=== PATIENT | male | born 1945 | race Hispanic/Latino ===

== ENCOUNTER 2016-11-14 16:25 | Observation (INO) | payer MEDICARE ==
[2016-11-14 16:25] VITALS: BMI 30.5
--- NOTE | 2016-11-14 16:46 | C.PDOC ---
History Of Present Illness 71 y/o male presents to the ED with complains of worsening chest pain over the past 2 days. Pt has known cardiac disease with multiple stents and chronic chest pain but over the past 2 days pain has worsened, is [id number] and worse with exertion, relieved with rest. Pt also reports SOB when chest pain occurs. Pt saw Dr Efrain pack who sent patient to ED for evaluation and admission for "unstable angina." Pt currently denies pain, nausea, palpitations , diaphoresis or any other complaints. Time Seen by Provider: 11/14/16 16:31 Chief Complaint (Nursing): Chest Pain History Per: Patient History/Exam Limitations: no limitations Onset/Duration Of Symptoms: Days Current Symptoms Are (Timing): Worse Severity: Moderate Quality: "Pain" Exacerbating Factors: Exertion Alleviating Factors: Rest Recent travel outside of the [place]: No Past Medical History Reviewed: Historical Data, Nursing Documentation, Vital Signs Vital Signs: Last Vital Signs Temp 97.6 F 11/14/16 16:25 Pulse 64 11/14/16 16:25 Resp 18 11/14/16 16:25 BP 137/70 11/14/16 16:25 Pulse Ox 96 11/14/16 18:56 - Medical History PMH: Gastrointestinal Ulcer, HTN, Hypercholesterolemia Surgical History: Coronary Stent, Endoscopy Family History: States: Unknown Family Hx - Social History Hx Tobacco Use: No Hx Alcohol Use: No Hx Substance Use: No - Immunization History Hx Tetanus Toxoid Vaccination: No Hx Influenza Vaccination: No Hx Pneumococcal Vaccination: No Review Of Systems Except As Marked, All Systems Reviewed And Found Negative. Constitutional: Negative for: Fever, Sweats Cardiovascular: Positive for: Chest Pain (currenlty resolved). Negative for: Palpitations Respiratory: Positive for: Shortness of Breath (currently resolved) Gastrointestinal: Negative for: Nausea, Vomiting Physical Exam - Physical Exam Appears: Non-toxic, No Acute Distress Skin: Warm, Dry, No Rash Head: Atraumatic, Normacephalic Neck: Normal ROM, Supple Chest: Symmetrical, No Tenderness Cardiovascular: Rhythm Regular, No Murmur Respiratory: Normal Breath Sounds, No Rales, No Rhonchi, No Wheezing Gastrointestinal/Abdominal: Soft Extremity: Normal ROM, No Pedal Edema Extremity: Bilateral: Atraumatic Neurological/Psych: Oriented x3, Normal Speech ED Course And Treatment - Laboratory Results Result Diagrams: 11/14/16 17:29 11/14/16 17:29 Lab Interpretation: No Acute Changes ECG: Interpreted By Me ECG Rhythm: Sinus Rhythm (with left axis deviation and Q waves III, AVF) ECG Interpretation: No Acute Changes O2 Sat by Pulse Oximetry: 96 (on room air) Pulse Ox Interpretation: Normal - Radiology CXR: Interpreted by Me CXR Interpretation: Yes: Cardiomegaly, Other (with mild vascular congestion) Progress Note: Plan: EKG, labs, CXR, IV fluids Reevaluation Time: 18:55 Reassessment Condition: Improved (Patient remains comfortable) - Physician Consult Information Time Consulting Physician Contacted: 18:55 Physician Contacted: Coral Jackson Disposition - Disposition Disposition: HOSPITALIZED Disposition Time: 19:21 Condition: STABLE - POA Present On Arrival: None - Clinical Impression Clinical Impression: Chest pain, Unstable angina pectoris - Scribe Statement The provider has reviewed the documentation as recorded by the Hugh Cuello Provider Attestation: All medical record entries made by the Hugh were at my direction and personally dictated by me. I have reviewed the chart and agree that the record accurately reflects my personal performance of the history, physical exam, medical decision making, and the department course for this patient. I have also personally directed, reviewed, and agree with the discharge instructions and disposition.
[2016-11-14 17:35] LABS: BASO % 0.6 % (0.0-2.0); EOS # 0.1 K/uL (0.0-0.7); EOS % 3.8 % (0.0-4.0); HEMATOCRIT 40.7 % (35.0-51.0); LYMPH # 1.2 K/uL (1.0-4.3); LYMPH % 33.6 % (20.0-40.0); MEAN CELL VOLUME 90.9 fL (80.0-94.0); MEAN CORPUSCULAR HEMOGLOBIN 30.7 pg (27.0-31.0); MEAN CORPUSCULAR HGB CONC 33.8 g/dL (33.0-37.0); MONO # 0.6 K/uL (0.0-0.8); NRBC % 0.1 % (0.0-2.0); RED CELL DISTRIBUTION WIDTH 14.4 % (11.5-14.5); WHITE BLOOD COUNT 3.4 K/uL (4.8-10.8)
[2016-11-14 17:44] LABS: CHLORIDE 102 mmol/L (98-107); POTASSIUM 4.1 mmol/L (3.6-5.2); SODIUM 140 mmol/L (132-148)
[2016-11-14 17:47] LABS: ALB/GLOB RATIO 1.3 (1.0-2.1); ALKALINE PHOSPHATASE 57 U/L (38-126); ALT/SGPT 198 U/L (21-72); AST/SGOT 113 U/L (17-59); BILIRUBIN,TOTAL 0.8 mg/dL (0.2-1.3); BLOOD UREA NITROGEN 20 mg/dL (9-20); CARBON DIOXIDE 25 mmol/L (22-30); GFR AFRICAN-AMERICAN > 60; GLUCOSE,RANDOM 109 mg/dL (75-110); TOTAL PROTEIN 7.5 g/dL (6.3-8.3)
[2016-11-14 17:48] LABS: CALCIUM 8.8 mg/dl (8.6-10.4)
[2016-11-15] MEDS: Metoprolol Succinate 25 mg XL Tab PO SCH (09:47)
--- NOTE | 2016-11-15 11:45 | CARD ---
APPROVED REPORT EKG Measurement Heart [id number] AR 146P33 [id number] <Conclusion> Normal sinus rhythm Left axis deviation Inferior infarct, age undetermined Abnormal ECG
--- NOTE | 2016-11-15 13:19 | RAD ---
PROCEDURE: CHEST RADIOGRAPH, 1 VIEW HISTORY: chest pain COMPARISON: 10/23/2015 FINDINGS: LUNGS: Clear. PLEURA: No pneumothorax or pleural fluid seen. CARDIOVASCULAR: Normal. OSSEOUS STRUCTURES: No significant abnormalities. VISUALIZED UPPER ABDOMEN: Normal. OTHER FINDINGS: None IMPRESSION: No active disease.
--- NOTE | 2016-11-15 18:13 | CP.PCM.PN ---
Subjective - Date & Time of Evaluation Date of Evaluation: 11/15/16 Time of Evaluation: 18:10 - Subjective Subjective: PT IS STILL HAVING THE PRESSURE LIKE SENSATION OVER THE CHEST NO SOB NONAUSEA NO VOMITING Temp Pulse Resp BP Pulse Ox 97.8 F 67 20 119/71 96 11/15/16 15:00 11/15/16 15:30 11/15/16 15:00 11/15/16 15:00 11/15/16 15:00 CHEST GOOD AIR ENTRY REGULAR HS ABD SOFT EATING OK Temp Pulse Resp BP Pulse Ox 97.8 F 67 20 119/71 96 11/15/16 15:00 11/15/16 15:30 11/15/16 15:00 11/15/16 15:00 11/15/16 15:00 11/14/16 17:29 11/14/16 17:29 D-DIMER NEGATIVE LESS LIKELY DVT A/P: PT WITH HTN, COPD, LUNG NODULE, CAD S/P STENT NOW LIKELY HAS UNSTABLE ANGINA ONGOING ANGINA MICHAEL NEGATIVE WILL GET CARDIO LIKELY CATH IN AM Objective - Vital Signs/Intake and Output Vital Signs (last 24 hours): Temp Pulse Resp BP Pulse Ox 97.8 F 67 20 119/71 96 11/15/16 15:00 11/15/16 15:30 11/15/16 15:00 11/15/16 15:00 11/15/16 15:00 Intake and Output: 11/15/16 11/15/16 06:59 18:59 Intake Total 240 340 Balance 240 340 - Medications Medications: Current Medications Allopurinol (Zyloprim) 100 mg PO DAILY [facility] Last Admin: 11/15/16 09:47 Dose: 100 mg Aspirin (Ecotrin) 81 mg PO DAILY [facility] Last Admin: 11/15/16 09:47 Dose: 81 mg Ezetimibe (Zetia) 10 mg PO DAILY [facility] Last Admin: 11/15/16 09:48 Dose: 10 mg Famotidine (Pepcid) 40 mg PO DAILY [facility] Last Admin: 11/15/16 09:47 Dose: 40 mg Lisinopril (Zestril) 10 mg PO DAILY [facility] Last Admin: 11/15/16 09:47 Dose: 10 mg Metoprolol Succinate (Toprol Xl) 25 mg PO DAILY [facility] Last Admin: 11/15/16 09:47 Dose: 25 mg
--- NOTE | 2016-11-16 01:35 | CP.PCM.PN ---
Subjective - Date & Time of Evaluation Date of Evaluation: 11/15/16 Time of Evaluation: 17:15 - Subjective Subjective: Patient seen and evaluated ECHO: Normal EF Trops negative For stress test in am Objective - Vital Signs/Intake and Output Vital Signs (last 24 hours): Temp Pulse Resp BP Pulse Ox 97.7 F 59 L 20 127/73 96 11/15/16 23:10 11/15/16 23:10 11/15/16 23:10 11/15/16 23:10 11/15/16 23:10 Intake and Output: 11/15/16 11/16/16 18:59 06:59 Intake Total 340 Balance 340 - Medications Medications: Current Medications Allopurinol (Zyloprim) 100 mg PO DAILY [facility] Last Admin: 11/15/16 09:47 Dose: 100 mg Aspirin (Ecotrin) 81 mg PO DAILY [facility] Last Admin: 11/15/16 09:47 Dose: 81 mg Ezetimibe (Zetia) 10 mg PO DAILY [facility] Last Admin: 11/15/16 09:48 Dose: 10 mg Famotidine (Pepcid) 40 mg PO DAILY [facility] Last Admin: 11/15/16 09:47 Dose: 40 mg Lisinopril (Zestril) 10 mg PO DAILY [facility] Last Admin: 11/15/16 09:47 Dose: 10 mg Metoprolol Succinate (Toprol Xl) 25 mg PO DAILY [facility] Last Admin: 11/15/16 09:47 Dose: 25 mg
[2016-11-16 06:48] LABS: ALB/GLOB RATIO 1.3 (1.0-2.1); BILIRUBIN,DIRECT 0.5 mg/dL (0.0-0.4); BILIRUBIN,TOTAL 1.3 mg/dL (0.2-1.3); TOTAL PROTEIN 6.9 g/dL (6.3-8.3)
[2016-11-16] MEDS: Metoprolol Succinate 25 mg XL Tab PO SCH (10:00)
[2016-11-16 10:52] VITALS: PULSE 75
--- NOTE | 2016-11-16 12:32 | US ---
HISTORY: R/O Cholecystitis COMPARISON: None. TECHNIQUE: Sonographic evaluation of the abdomen. Limited evaluation. FINDINGS: LIVER: Measures 16.3 cm. Mildly increased echogenicity of the liver parenchyma. No intrahepatic bile duct dilatation. GALLBLADDER: The gallbladder is not abnormally distended. There is no gallbladder wall edema or pericholecystic fluid. No shadowing or echogenic calculus identified. According to the technologist, the sonographic Ventura's sign was not present. COMMON BILE DUCT: Measures 1 mm. No stones. No dilatation. PANCREAS: Nonvisualization of the pancreas. RIGHT KIDNEY: Measures 11.1 x 5.6 x 4.5cm. Normal echogenicity. No calculus, mass, or hydronephrosis. LEFT KIDNEY: Not imaged. SPLEEN: Not imaged. AORTA: Limited visualization. IVC: Limited visualization. OTHER FINDINGS: The visualized segments of the portal vein appear patent. IMPRESSION: No definite shadowing/ echogenic calculi seen within the gallbladder lumen. Heterogeneous echotexture of the hepatic parenchyma could be due to hepatic steatosis versus parenchymal disease. If indicated, MRI can be obtained for better evaluation.
--- NOTE | 2016-11-16 13:27 | CARD ---
APPROVED REPORT EXAM: Two-dimensional and M-mode echocardiogram with Doppler and color Doppler. Other Information Quality : AverageRhythm : INDICATION Chest Pain STENTS, ANGINA RISK FACTORS Hypertension Hyperlipidemia M-Mode DIMENSIONS RVDd1.76 (2.1-3.2cm)Left Atrium (MM)3.90 (2.5-4.0cm) IVSd1.21 (0.7-1.1cm)Aortic Root2.77 (2.2-3.7cm) LVDd5.31 (4.0-5.6cm)Aortic Cusp Exc.1.60 (1.5-2.0cm) PWd1.17 (0.7-1.1cm)FS (%) 26 % LVDs3.94 (2.0-3.8cm)LVEF (%)50 (>50%) Aortic Valve AoV Peak Yvnovgkx888.8cm/Pilar Peak GR.7mmHg Mitral Valve MV E Scxvfyje69.6cm/sMV A Gkezlmnr68.5cm/sE/A ratio0.9 TDI E/Lateral E'0.0E/Medial E'0.0 Tricuspid Valve TR Peak Pokjogtc659uz/sTR Peak Gr.31ncOqGFXD13hfWj LEFT VENTRICLE The left ventricle is normal size. There is normal left ventricular wall thickness. The left ventricular function is normal. The left ventricular ejection fraction is within the normal range. Possible inferior-basal hypokinesis The left ventricular diastolic function is normal. No left ventricle thrombus noted on this study. There is no ventricular septal defect visualized. There is no left ventricular aneurysm. There is no mass noted in the left ventricle. RIGHT VENTRICLE The right ventricle is normal size. There is normal right ventricular wall thickness. The right ventricular systolic function is normal. ATRIA The left atrium size is normal. The right atrium size is normal. The interatrial septum is intact with no evidence for an atrial septal defect. AORTIC VALVE The aortic valve is normal in structure and function. There is mild aortic regurgitation. There is no aortic valvular stenosis. There is no aortic valvular vegetation. MITRAL VALVE The mitral valve is normal in structure and function. There is no evidence of mitral valve prolapse. There is no mitral valve stenosis. There is no mitral valve regurgitation noted. TRICUSPID VALVE The tricuspid valve is normal in structure and function. There is mild tricuspid regurgitation. Right ventricular systolic pressure is estimated at 30-40 mmHg. There is no tricuspid valve prolapse or vegetation. There is no tricuspid valve stenosis. PULMONIC VALVE The pulmonary valve is normal in structure and function. There is no pulmonic valvular regurgitation. There is no pulmonic valvular stenosis. GREAT VESSELS The aortic root is normal in size. The ascending aorta is normal in size. The pulmonary artery is normal. The IVC is normal in size and collapses >50% with inspiration. PERICARDIAL EFFUSION The pericardium appears normal. There is no pleural effusion. <Conclusion> The left ventricular function is normal. The left ventricular ejection fraction is within the normal range. Possible inferior-basal hypokinesis There is mild aortic regurgitation.
[2016-11-16] MEDS ORDERED: Iodixanol 320 MG/ML 100 ML BOTTLE IV ONE (13:41)
--- NOTE | 2016-11-16 13:45 | CARD ---
APPROVED REPORT Protocol: PHARMACOLOGICAL STRESS Test Type: LEXISCAN Test Indications: CHEST PAIN Medications: LIST SCAN Medical History: CHEST PAIN Target HR: 149 bpm Resting ECG: normal Resting Heart Rate: 65 bpm Resting Blood Pressure: 110/80mmHg submaximum (85%): 127 bpm TEST SUMMARY [id number]/80.0. INFUSIONDOSE 100:[id number]/80.0. TUPMAOCDO25:[id number]/70.0. PROCEDURE Pharmacologic stress testing was performed using 0.4mg per 5ml of regadenoson given intravenously over 7-10 seconds. POST EXERCISE Reason for Termination: Lexiscan protocol completed Target HR: No Max HR: 64 bpm 63% of Maximum Predicted HR: 149 bpm Exercise duration: 00:31 min:sec, 0 Stage Exercise capacity: 1.0METs Max Blood Pressure: 152/70mmHg Blood Pressure response to exercise: normal resting BP - appropriate response Heart Rate response to exercise: appropriate Chest Pain: No, none Angina index: 0 Arrhythmia: No, none ST Change: No, none Deviation: 0 mm INTERPRETATION Stress EKG Conclusion: Nuclear report to follow EXAM: Myocardial Perfusion STRESS/REST Imaging Protocol The imaging protocol used to acquire images was Stress Tc-99m/rest Tc-99m 1 day Stress Spect myocardial perfusion imaging was performed in supine position 41 minutes following the injection of 1.9 mCi of Tc-99 Myoview. Gated Rest Spect was performed 40 minutes after intravenous 32.1 mCi Tc-99 Myoview injection. The images were gated to evaluate regional wall motion and calculate ventricular ejection fraction.Images were reconstructed using backfilter projection method in short horizontal and verticle long axis. Spect slices were generated. RESTING DATA EDV71.82alRL9.10L/min ESV23.00mlMyocardial Vqrt967.00g Av. Heart Rate64.00bpm EF68.00% STRESS DATA EDV70.72gdMV6.50L/min ESV19.00mlMyocardial Zntl555.00g EF73.00% Regional WT score at stress:0.00 Regional WM score at stress:0.00 Summed WT score at stress:1.00 Av. Heart Rate67.00bpmSummed WM score at stress:1.00 LV Perf. Quant 17 Seg. SSS0.00 17 Seg. SRS1.00 17 Seg. SDS0.00 Stress Defect Extent (% LAD)0.00Rest Defect Extent (% LAD)0.00Rev. Defect Extent (% LAD)0.00 Stress Defect Extent (% LCX)22.50Rest Defect Extent (% LCX)20.00Rev. Defect Extent (% LCX)3.80 Stress Defect Extent (% RCA)0.00Rest Defect Extent (% RCA)0.00Rev. Defect Extent (% RCA)0.00 Stress Defect Extent (% ERIC)3.90Rest Defect Extent (% ERIC)4.10Rev. Defect Extent (% ERIC)0.70 Other Information Quality:Good IMPRESSION Normal Myocardial Perfusion exercise stress study Left Ventricle LV Size/Shape: The left ventricle is normal size. LV Function:Left ventricle systolic function is normal. The Ejection Fraction is 65-70%. Conclusion 1. Normal Lexiscan Nuclear Stress test. Normal EF.
[2016-11-16] MEDS ORDERED: MethylPREDNISolone 40 mg Vial IVP ONE (14:28)
[2016-11-16] MEDS ORDERED: Sodium Chloride 0.45% 1,000 ML IV SCH (14:30)
--- NOTE | 2016-11-16 14:49 | CT ---
PROCEDURE: CT Abdomen and Pelvis with contrast HISTORY: R/O CHOLEYCYSTITIS COMPARISON: Comparison is made to the previous study dated 10/24/2015 TECHNIQUE: Contrast dose: 100 mL of Visipaque Radiation dose: Total exam DLP = 710.63 mGy-cm. FINDINGS: LOWER THORAX: No evidence of acute pathology LIVER: Mild hepatomegaly and moderate steatosis are again noted. The portal vein is patent. GALLBLADDER AND BILE DUCTS: Gallstones are seen without evidence of acute cholecystitis. The biliary tree is not dilated. PANCREAS: No evidence of acute pancreatitis. The main pancreatic duct is not dilated. SPLEEN: Unremarkable. ADRENALS: Unremarkable. No mass. KIDNEYS AND URETERS: Unremarkable. No hydronephrosis. No solid mass. VASCULATURE: Unremarkable. No aortic aneurysm. BOWEL: Unremarkable. No obstruction. No gross mural thickening. Mild constipation. APPENDIX: No evidence of appendicitis. PERITONEUM: Unremarkable. No free fluid. No free air. LYMPH NODES: Unremarkable. No enlarged lymph nodes. BLADDER: Mild to moderate urinary bladder wall thickening. REPRODUCTIVE: Unremarkable. BONES: No acute fracture. OTHER FINDINGS: None. IMPRESSION: No evidence of cholecystitis. Small gallstones. The biliary tree is not dilated. Mild hepatomegaly and moderate hepatic steatosis. No CT evidence of acute pathology in the abdomen and pelvis.
[2016-11-16 16:09] VITALS: BP 143/79; RESP 20; TEMP 98.4; O2SAT 95
== END 2016-11-16 20:17 | disposition home or self-care (01) ==
LOC: C.ER 16:25 → C.9E 19:22 → C.6T 20:27
PROVIDERS: ADMIT Internal Medicine; ATTEND Internal Medicine
DX: R07.9 Chest pain, unspecified (principal); E78.00 Pure hypercholesterolemia, unspecified; I10 Essential (primary) hypertension; J44.9 Chronic obstructive pulmonary disease, unspecified; Z87.11 Personal history of peptic ulcer disease
CPT/HCPCS: 36415; 71010; 74177; 76705; 78452; 80053; 80076; 82150; 83690; 83880; 84484; 85025; 85378; 93005; 93017; 93306; 96374; 99283; A9502; G0378; J2920; J7030; Q9967

== ENCOUNTER 2016-11-20 22:33 | Emergency (ER) | payer MEDICARE ==
[2016-11-20 22:34] VITALS: BMI 30.5
--- NOTE | 2016-11-20 23:38 | C.PDOC ---
History Of Present Illness 71 y/o male presents to ED with complaints of fever, cough, sore throat, and mid -epigastric abdominal pain that worsens with coughing. Patient has past history of 4 stents. Denies nausea, vomiting, chest pain, shortness of breath, or other associated symptoms. Time Seen by Provider: 11/20/16 23:29 Chief Complaint (Nursing): Fever History Per: Patient History/Exam Limitations: no limitations Onset/Duration Of Symptoms: Days Current Symptoms Are (Timing): Still Present Location Of Pain: Throat, Other (epigastrium) Sick Contacts (Context): None Associated Symptoms: Fever, Sore Throat, Cough. denies: Vomiting, Diarrhea Ear Symptoms: Bilateral: None Recent travel outside of the [place]: No Past Medical History Reviewed: Historical Data, Nursing Documentation, Vital Signs Vital Signs: Last Vital Signs Temp 100.9 F H 11/20/16 22:58 Pulse 87 11/20/16 22:58 Resp 20 11/20/16 22:58 BP 130/69 11/20/16 22:58 Pulse Ox 95 11/21/16 00:29 - Medical History PMH: Gastrointestinal Ulcer, HTN, Hypercholesterolemia Surgical History: Coronary Stent, Endoscopy Family History: States: Unknown Family Hx - Social History Hx Tobacco Use: No Hx Alcohol Use: No Hx Substance Use: No - Immunization History Hx Tetanus Toxoid Vaccination: No Hx Influenza Vaccination: No Hx Pneumococcal Vaccination: No Review Of Systems Constitutional: Positive for: Fever. Negative for: Chills ENT: Positive for: Throat Pain Cardiovascular: Negative for: Chest Pain Respiratory: Positive for: Cough. Negative for: Shortness of Breath Gastrointestinal: Positive for: Abdominal Pain. Negative for: Vomiting, Diarrhea Genitourinary: Negative for: Dysuria Musculoskeletal: Negative for: Back Pain Skin: Negative for: Rash Neurological: Negative for: Weakness Psych: Negative for: Anxiety Physical Exam - Physical Exam Appears: Non-toxic, No Acute Distress, Other (Speaking in complete sentences) Skin: Warm, Dry Head: Atraumatic, Normacephalic Oral Mucosa: Moist Throat: No Erythema, No Exudate Neck: Supple Chest: Symmetrical Cardiovascular: Rhythm Regular Respiratory: No Rales, Rhonchi (scattered ), No Wheezing Gastrointestinal/Abdominal: Bowel Sounds (good bowel sounds), Soft, No Tenderness, No Guarding, No Rebound Back: Normal Inspection Extremity: Normal ROM, Capillary Refill (< 2 sec. ) Extremity: Bilateral: Atraumatic, Normal Color And Temperature Neurological/Psych: Oriented x3, Normal Speech, Normal Cognition Gait: Steady ED Course And Treatment - Laboratory Results Result Diagrams: 11/21/16 00:13 11/21/16 00:13 ECG: Interpreted By Me, Viewed By Me ECG Rhythm: Sinus Rhythm (74), Nonspecific Changes O2 Sat by Pulse Oximetry: 95 (RA) Pulse Ox Interpretation: Normal - Radiology CXR: Interpreted by Me, Viewed By Me CXR Interpretation: Yes: Infiltrates (? lll infiltrate), Other (possible worse since 11/15/15). No: Fracture, Pnemothorax Progress Note: blood work, vbg, nebs, cxr. 1AM - Upon provider reevaluation patient is feeling better, is medically stable, and requires no further treatment in the ED at this time. Patient will be discharged home with Rx for albuterol and zithromax . Counseling was provided and all questions were answered regarding diagnosis and need for follow up with the referred clinic. There is agreement to discharge plan. Return if symptoms persist or worsen. Reevaluation Time: 00:58 Reassessment Condition: Improved Disposition Counseled Patient/Family Regarding: Studies Performed, Diagnosis, Need For Followup, Rx Given - Disposition Referrals: Coral Jackson MD [Staff Provider] - Disposition: HOME/ ROUTINE Disposition Time: 23:38 Condition: FAIR Additional Instructions: Please return if symptoms recur Prescriptions: Albuterol 0.083% [Albuterol Sulfate 3 Ml] 3 ml IH QID PRN #50 neb PRN Reason: Cough Azithromycin [Zithromax Tri-Justice] 500 mg PO DAILY #3 tablet Instructions: Acute Bronchitis (ED) - Clinical Impression Clinical Impression: Fever, Bronchitis - Scribe Statement The provider has reviewed the documentation as recorded by the Hugh Chavez Provider Attestation: Provider Scribe Attestation: All medical record entries made by the Hortenciaibshana were at my direction and personally dictated by me. I have reviewed the chart and agree that the record accurately reflects my personal performance of the history, physical exam, medical decision making, and the department course for this patient. I have also personally directed, reviewed, and agree with the discharge instructions and disposition.
[2016-11-21 00:11] LABS: VENOUS BLOOD GAS BASE EXCESS 1.5 mmol/L (0.0-2.0); VENOUS BLOOD GAS PCO2 39 mmHg (40-60); VENOUS BLOOD PH 7.43 (7.32-7.43)
[2016-11-21 00:18] LABS: BASO % 1.5 % (0.0-2.0); EOS # 0.1 K/uL (0.0-0.7); EOS % 3.1 % (0.0-4.0); LYMPH # 0.5 K/uL (1.0-4.3); LYMPH % 17.4 % (20.0-40.0); MEAN CELL VOLUME 91.2 fL (80.0-94.0); MEAN CORPUSCULAR HEMOGLOBIN 30.8 pg (27.0-31.0); MEAN CORPUSCULAR HGB CONC 33.8 g/dL (33.0-37.0); MEAN PLATELET VOLUME 8.7 fL (7.2-11.7); MONO # 0.8 K/uL (0.0-0.8); PLATELET COUNT 133 K/uL (130-400); WHITE BLOOD COUNT 2.9 K/uL (4.8-10.8)
[2016-11-21 00:25] LABS: INR 1.1
[2016-11-21 00:35] LABS: CHLORIDE 101 mmol/L (98-107); POTASSIUM 4.2 mmol/L (3.6-5.2); SODIUM 137 mmol/L (132-148)
[2016-11-21 00:37] LABS: GFR AFRICAN-AMERICAN > 60
[2016-11-21 00:38] LABS: ALB/GLOB RATIO 1.1 (1.0-2.1); ALKALINE PHOSPHATASE 68 U/L (38-126); ALT/SGPT 141 U/L (21-72); AST/SGOT 79 U/L (17-59); BILIRUBIN,TOTAL 0.8 mg/dL (0.2-1.3); BLOOD UREA NITROGEN 20 mg/dL (9-20); CARBON DIOXIDE 26 mmol/L (22-30); GLUCOSE,RANDOM 106 mg/dL (75-110); TOTAL PROTEIN 6.6 g/dL (6.3-8.3)
[2016-11-21 00:39] LABS: CALCIUM 8.6 mg/dl (8.6-10.4)
[2016-11-21] MEDS: Albuterol-Ipratrop 3 mg / 0.5 (3 ml) UD IH SCH (00:50)
[2016-11-21] MEDS ORDERED: Albuterol-Ipratrop 3 mg / 0.5 (3 ml) UD ONE (00:52)
[2016-11-21 01:42] LABS: EOSINOPHIL 2 % (0-4); NEUTROPHIL 53 % (50-75); TOTAL CELLS COUNTED 100
[2016-11-21 02:05] VITALS: BP 144/60; PULSE 111; RESP 18; TEMP 98.7; O2SAT 96
--- NOTE | 2016-11-21 09:24 | RAD ---
HISTORY: SOB COMPARISON: 11/14/2016 TECHNIQUE: Chest PA and lateral FINDINGS: LUNGS: Patchy bibasilar airspace opacities which may represent atelectasis and or infiltrate; right greater than left. Question small bilateral pleural effusions. Venous congestion. Right midlung atelectasis. Biapical pleural thickening. PLEURA: As above. CARDIOVASCULAR: Cardiomegaly. OSSEOUS STRUCTURES: No significant abnormalities. VISUALIZED UPPER ABDOMEN: Normal. OTHER FINDINGS: None. IMPRESSION: Patchy bibasilar airspace opacities which may represent atelectasis and or infiltrate; right greater than left. Question small bilateral pleural effusions. Venous congestion. Right midlung atelectasis. Biapical pleural thickening.
--- NOTE | 2016-11-22 21:41 | CARD ---
APPROVED REPORT EKG Measurement Heart [id number] CT 142P41 [id number] <Conclusion> Normal sinus rhythm Inferior infarct, age undetermined Abnormal ECG
== END 2016-11-21 02:05 | disposition home or self-care (01) ==
LOC: C.ER 22:33
DX: J40 Bronchitis, not specified as acute or chronic (principal); R50.9 Fever, unspecified

== ENCOUNTER 2017-05-02 06:55 | Day surgery (SDC) | payer MEDICARE ==
[2017-05-02 07:54] VITALS: BMI 29.0
--- NOTE | 2017-05-02 08:45 | CP.SDSHP ---
Same Day Surgery H & P - History Proposed Procedure: endoscopy Pre-Op Diagnosis: abdom pain, reflux - Previous Medical/Surgical History Cardiac: Hypertension, ASHD/CAD - Allergies Allergies: Allergies No Known Allergies Allergy (Verified 11/14/16 16:34) - Physical Exam Vital Signs: Vital Signs 05/02/17 07:56 Temperature 97.6 F Pulse Rate 61 Respiratory 19 Rate Blood Pressure 135/68 O2 Sat by Pulse 99 Oximetry Mental Status: Alert & Oriented x3 Neuro: WNL Heart: WNL Lungs: WNL GI: WNL - {Optional Preform as Required} Abdomen: WNL - Impression Impression: gastritis Pt. Evaluated Today:Candidate for Anesthesia & Procedure: Yes - Date & Time Date: 05/02/17 Time: 08:45 Short Stay Discharge - Short Stay Discharge Admitting Diagnosis/Reason for Visit: ESOPHAGEAL REFLUX Disposition: HOME/ ROUTINE
[2017-05-02] MEDS ORDERED: Midazolam 2 MG/2 ML VIAL ONE (08:51)
[2017-05-02] MEDS ORDERED: Propofol 10 mg/ml Inj (20 ML) ONE (08:51)
[2017-05-02] MEDS ORDERED: Lactated Ringer's 500 ML IV ONE (09:04)
[2017-05-02 09:51] VITALS: TEMP 97
[2017-05-02 10:51] VITALS: BP 150/80; PULSE 54; RESP 18; O2SAT 99
== END 2017-05-02 10:30 | disposition home or self-care (01) ==
LOC: C.ENDO 06:55
PROVIDERS: ATTEND Internal Medicine Gastroenterology
DX: K21.9 Gastro-esophageal reflux disease without esophagitis (principal); K29.70 Gastritis, unspecified, without bleeding
CPT/HCPCS: 43239; 88305; 88312; 88342; J2001; J2250; J2704; J3010; J7120

== ENCOUNTER 2017-06-07 17:34 | Emergency (ER) | payer MEDICARE ==
[2017-06-07 17:34] VITALS: BMI 29.0
[2017-06-07 17:42] VITALS: TEMP 97.8; O2SAT 98
[2017-06-07] MEDS ORDERED: Oxycodone/Acetaminophen 5/325 mg Tab PO STA (18:05)
--- NOTE | 2017-06-07 18:16 | C.PDOC ---
History Of Present Illness 72 yo male w/PMHx of gout come in for evaluation of Right ankle and foot pain gradually developed for past 3-4 days. Pt sts, pain is started from Right ankle area and moved to Right foot. Pt admits, similar sx in past, same location, when was diagnosed with gout. Pt sts, was seen by PMD 3 days ago when received Rx: Colchicine and Prednisone without improvement in sx. Otherwise, pt denies fever, chills, headache, dizziness, neck pain, CP, SOB, dyspnea, diaphoresis, palpitation, cough, abd. pain, N/V/D, UTI sx, denies new weakness, sensory or vascular deficits to Right leg. Ambulate to ED, appears in pain. Time Seen by Provider: 06/07/17 17:58 Chief Complaint (Nursing): Lower Extremity Problem/Injury History Per: Patient History/Exam Limitations: no limitations Onset/Duration Of Symptoms: Days (3-4) Past Medical History Reviewed: Historical Data, Nursing Documentation, Vital Signs Vital Signs: Last Vital Signs Temp 97.8 F 06/07/17 17:40 Pulse 72 06/07/17 20:42 Resp 17 06/07/17 20:42 BP 126/75 06/07/17 20:42 Pulse Ox 98 06/07/17 20:42 - Medical History PMH: Gastrointestinal Ulcer, HTN, Hypercholesterolemia Surgical History: Coronary Stent, Endoscopy Family History: States: No Known Family Hx - Social History Hx Tobacco Use: No Hx Alcohol Use: No Hx Substance Use: No - Immunization History Hx Tetanus Toxoid Vaccination: No Hx Influenza Vaccination: No Hx Pneumococcal Vaccination: No Review Of Systems Except As Marked, All Systems Reviewed And Found Negative. Constitutional: Negative for: Fever, Chills Cardiovascular: Negative for: Chest Pain, Palpitations Respiratory: Negative for: Cough, Shortness of Breath Gastrointestinal: Negative for: Nausea, Vomiting, Abdominal Pain, Diarrhea Musculoskeletal: Positive for: Other ((+) Right ankle and foot pain). Negative for: Neck Pain Neurological: Negative for: Weakness, Numbness, Headache, Dizziness Physical Exam - Physical Exam Appears: Well, Non-toxic, No Acute Distress Skin: Normal Color, Warm, No Rash, No Cyanotic, No Ecchymosis Head: Normacephalic Eye(s): bilateral: PERRL Nose: No Discharge Oral Mucosa: Moist Throat: No Drooling Neck: Supple Cardiovascular: Rhythm Regular, No Murmur, No JVD, Other ((-) carotib bruits B/L ) Respiratory: No Decreased Breath Sounds, No Accessory Muscle Use, No Stridor, No Wheezing Gastrointestinal/Abdominal: Soft, No Tenderness Extremity: Normal ROM (B/L LEs.), Tenderness (diffuse Right ankle tenderness with moderate edema. No erythema, no lymphagitis.), No Calf Tenderness (B/L), No Deformity, Swelling (R>L ankle, non-pitting) Neurological/Psych: Oriented x3, Normal Speech, Normal Motor, Normal Sensation, Normal Reflexes ED Course And Treatment - Laboratory Results Result Diagrams: 06/07/17 18:56 06/07/17 18:56 Lab Interpretation: No Changes Compared To Prior Results O2 Sat by Pulse Oximetry: 98 (RA) Pulse Ox Interpretation: Normal - Other Rad X-Ray - Right Ankle X-Ray: Viewed By Me, Read By Radiologist Interpretation: PROCEDURE: Right Ankle Radiographs. HISTORY: pain. COMPARISON: None. FINDINGS: BONES: Normal. No fracture. JOINTS: Normal. No osteoarthritis. Ankle mortise maintained. Talar dome intact. SOFT TISSUES: Lateral soft tissue swelling, nonspecific. OTHER FINDINGS: None. IMPRESSION: No acute fracture. Lateral soft tissue swelling. Progress Note: At 18:10, Case discussed with pt's PMD who recommend blood work, analgesics. Will re-eval later. At 20:05, pt repors moderate improvement in pain. Afebrile, hemodynamicaly stable. NOn-toxic. Ambulatory in ED with stable gait. ENT: no acute findings. Lungs: CTA B/L, BS equal B/L. Abd: benign. RLE: exam c/w Right ankle arthralgia, no evidence of cellulitis, no deformity. FAROM, no neurovascular deficits. Blood work review and case discussed with and no acute abnormalities noted compare to previous visits. Clinically pt improved. recommend discharge with outpt f/u tomorrow. Will cont. medication given by at home. results review and discussed with pt. Ref. to return to ED for Doppler US tomorrow. Pt agrees with plan and stable for discharge now. Medical Decision Making Medical Decision Making: PLAN: * X-Ray - Right Ankle * Venous Duplex * CBC * CMP * Urinalysis * Uric Acid * ESR * Percocet PO * Solumedrol IVP Disposition Counseled Patient/Family Regarding: Studies Performed, Diagnosis, Need For Followup, Rx Given - Disposition Referrals: Coral Jackson MD [Staff Provider] - Disposition: HOME/ ROUTINE Disposition Time: 20:14 Condition: STABLE Additional Instructions: CONTINUE MEDICATION PRESCRIBED BY PMD KEEP LEG ELEVATED FOLLOW UP WITH TOMORROW FOR FURTHER EVALUATION AND TREATMENT. RETUR IF ANY WORSENING OR NEW CHANGES. Prescriptions: traMADol [Ultram] 50 mg PO TID #7 tab Instructions: Gout (ED) Forms: [employer] (Faroese) - Clinical Impression Clinical Impression: Gouty arthritis - PA / FILM COATER / Resident Statement MD/DO has reviewed & agrees with the documentation as recorded. - Scribe Statement The provider has reviewed the documentation as recorded by the Scribe Francisca Coy All medical record entries made by the Hortenciaibshana were at my direction and personally dictated by me. I have reviewed the chart and agree that the record accurately reflects my personal performance of the history, physical exam, medical decision making, and the department course for this patient. I have also personally directed, reviewed, and agree with the discharge instructions and disposition.
--- NOTE | 2017-06-07 18:45 | RAD ---
PROCEDURE: Right Ankle Radiographs. HISTORY: pain COMPARISON: None FINDINGS: BONES: Normal. No fracture. JOINTS: Normal. No osteoarthritis. Ankle mortise maintained. Talar dome intact SOFT TISSUES: Lateral soft tissue swelling, nonspecific. OTHER FINDINGS: None. IMPRESSION: No acute fracture. Lateral soft tissue swelling.
[2017-06-07 19:01] LABS: BASO # 0.1 K/uL (0.0-0.2); BASO % 1.1 % (0.0-2.0); EOS # 0.2 K/uL (0.0-0.7); EOS % 4.8 % (0.0-4.0); HEMATOCRIT 40.1 % (35.0-51.0); LYMPH # 1.7 K/uL (1.0-4.3); LYMPH % 35.2 % (20.0-40.0); MEAN CELL VOLUME 90.4 fL (80.0-94.0); MEAN CORPUSCULAR HEMOGLOBIN 31.1 pg (27.0-31.0); MEAN CORPUSCULAR HGB CONC 34.4 g/dL (33.0-37.0); MONO # 1.1 K/uL (0.0-0.8); MONO % 22.9 % (0.0-10.0); NRBC % 0.1 % (0.0-2.0); PLATELET COUNT 180 K/uL (130-400); RED CELL DISTRIBUTION WIDTH 13.3 % (11.5-14.5); WHITE BLOOD COUNT 4.8 K/uL (4.8-10.8)
[2017-06-07] MEDS ORDERED: Oxycodone/Acetaminophen 5/325 mg Tab ONE (19:03)
[2017-06-07 19:08] LABS: CHLORIDE 103 mmol/L (98-107); SODIUM 136 mmol/L (132-148)
[2017-06-07 19:09] LABS: POTASSIUM 4.4 mmol/L (3.6-5.2)
[2017-06-07 19:11] LABS: ALB/GLOB RATIO 1.2 (1.0-2.1); ALKALINE PHOSPHATASE 60 U/L (38-126); AST/SGOT 69 U/L (17-59); BLOOD UREA NITROGEN 20 mg/dL (9-20); CARBON DIOXIDE 19 mmol/L (22-30); GFR AFRICAN-AMERICAN > 60; GLUCOSE,RANDOM 98 mg/dL (75-110); TOTAL PROTEIN 8.3 g/dL (6.3-8.3)
[2017-06-07 19:12] LABS: ALT/SGPT 120 U/L (21-72); CALCIUM 8.9 mg/dl (8.6-10.4)
[2017-06-07 19:22] LABS: URINE BILIRUBIN NEGATIVE (NEGATIVE); URINE BLOOD NEGATIVE (NEGATIVE); URINE COLOR Yellow (YELLOW); URINE GLUCOSE (UA) NORMAL (Normal); URINE KETONE NEGATIVE (NEGATIVE); URINE LEUKOCYTE ESTERASE NEG Leu/uL (Negative); URINE PROTEIN NEGATIVE (NEGATIVE); URINE UROBILINOGEN NORMAL mg/dL (0.2-1.0); WBC URINE < 1 /hpf (0-5)
[2017-06-07 19:32] LABS: EOSINOPHIL 4 % (0-4); NEUTROPHIL 43 % (50-75); TOTAL CELLS COUNTED 100
[2017-06-07 20:43] LABS: ERYTHROCYTE SEDIMENTATION RATE 30 mm/hr (0-15)
[2017-06-07 20:59] VITALS: BP 126/75; PULSE 72; RESP 17
== END 2017-06-07 20:44 | disposition home or self-care (01) ==
LOC: C.ER 17:34
DX: M10.9 Gout, unspecified (principal); I10 Essential (primary) hypertension
CPT/HCPCS: 73610; 80053; 81001; 83880; 84550; 85025; 85610; 85651; 85730; 96374; 99284; J2930

== ENCOUNTER 2018-02-13 07:57 | Day surgery (SDC) | payer MEDICARE ==
[2017-06-08 07:55] VITALS: BMI 29.0
--- NOTE | 2018-02-13 09:46 | CP.SDSHP ---
Same Day Surgery H & P - History Proposed Procedure: colonosocpy Pre-Op Diagnosis: screening - Previous Medical/Surgical History Cardiac: Hypertension, ASHD/CAD - Allergies Allergies: Allergies No Known Allergies Allergy (Verified 06/07/17 17:42) - Physical Exam Vital Signs: Vital Signs 02/13/18 08:34 Temperature 97.1 F L Pulse Rate 59 L Respiratory 18 Rate Blood Pressure 135/78 O2 Sat by Pulse 97 Oximetry Mental Status: Alert & Oriented x3 Neuro: WNL Heart: WNL Lungs: WNL GI: WNL - {Optional Preform as Required} Abdomen: WNL - Impression Impression: screen Pt. Evaluated Today:Candidate for Anesthesia & Procedure: Yes - Date & Time Date: 02/13/18 Time: 09:45 Short Stay Discharge - Short Stay Discharge Admitting Diagnosis/Reason for Visit: EPIGASTRIC PAIN Disposition: HOME/ ROUTINE
[2018-02-13] MEDS ORDERED: Propofol 10 mg/ml Inj (20 ML) ONE (09:48)
[2018-02-13] MEDS ORDERED: Midazolam 2 MG/2 ML VIAL ONE (09:49)
[2018-02-13] MEDS ORDERED: Lactated Ringer's 1,000 ML IV ONE (09:50)
[2018-02-13 11:53] VITALS: BP 128/65; PULSE 60; RESP 15; TEMP 97.5; O2SAT 97
== END 2018-02-13 11:45 | disposition home or self-care (01) ==
LOC: C.ENDO 07:57
PROVIDERS: ATTEND Internal Medicine Gastroenterology
DX: Z12.11 Encounter for screening for malignant neoplasm of colon (principal); I10 Essential (primary) hypertension; I25.10 Atherosclerotic heart disease of native coronary artery without angina pectoris; K57.30 Diverticulosis of large intestine without perforation or abscess without bleeding; K64.1 Second degree hemorrhoids
CPT/HCPCS: 45378; J2250; J2704; J7120

== ENCOUNTER 2018-04-01 12:38 | Observation (INO) | payer MEDICARE ==
[2018-04-01 12:39] VITALS: BMI 29.0
--- NOTE | 2018-04-01 13:39 | RAD ---
Date of service: 04/01/2018 PROCEDURE: CHEST RADIOGRAPH, 1 VIEW HISTORY: SOB COMPARISON: Chest radiographs 11/20/2016. FINDINGS: LUNGS: No acute cardiopulmonary disease appreciated. PLEURA: No pneumothorax or pleural fluid seen. CARDIOVASCULAR: Stable cardiomegaly. No pulmonary vascular congestion. OSSEOUS STRUCTURES: No significant abnormalities. VISUALIZED UPPER ABDOMEN: Mammillation the right hemidiaphragm is identified with elevation reiterated. Etiology indeterminate. OTHER FINDINGS: None. IMPRESSION: Stable cardiomegaly. No pulmonary vascular congestion. Interval infiltrate left base appears to have resolved. None is appreciated bilaterally at this time. Mammilated elevated hemidiaphragm reiterated.
[2018-04-01 13:43] LABS: BASO % 0.8 % (0.0-2.0); EOS # 0.1 K/uL (0.0-0.7); EOS % 2.7 % (0.0-4.0); HEMOGLOBIN 14.7 g/dL (12.0-18.0); LYMPH # 1.7 K/uL (1.0-4.3); LYMPH % 32.3 % (20.0-40.0); MEAN CELL VOLUME 91.2 fL (80.0-94.0); MEAN CORPUSCULAR HEMOGLOBIN 31.4 pg (27.0-31.0); MEAN CORPUSCULAR HGB CONC 34.5 g/dL (33.0-37.0); MONO % 19.1 % (0.0-10.0); NEUT # 2.4 K/uL (1.8-7.0); NEUT % 45.1 % (50.0-75.0); RBC 4.68 Mil/uL (4.40-5.90); RED CELL DISTRIBUTION WIDTH 13.9 % (11.5-14.5); WHITE BLOOD COUNT 5.4 K/uL (4.8-10.8)
[2018-04-01 13:56] LABS: INR 1.1; PROTHROMBIN TIME 11.8 SECONDS (9.7-12.2)
[2018-04-01 14:08] LABS: ALB/GLOB RATIO 1.2 (1.0-2.1); ALBUMIN 4.5 g/dL (3.5-5.0); CALCIUM 9.3 mg/dl (8.6-10.4); GFR AFRICAN-AMERICAN > 60; GFR NON-AFRICAN AMERICAN > 60; LIPASE 87 U/L (23-300)
[2018-04-01 14:11] LABS: ALT/SGPT 72 U/L (21-72); AST/SGOT 53 U/L (17-59); BLOOD UREA NITROGEN 23 mg/dL (9-20)
[2018-04-01 14:19] LABS: B-TYPE NATRIURETIC PEPTIDE 98.8 pg/mL (0-900)
--- NOTE | 2018-04-01 14:34 | C.PDOC ---
Time Seen by Provider: 04/01/18 13:06 Chief Complaint (Nursing): Abdominal Pain History Per: Patient Onset/Duration Of Symptoms: Days, Waxing/Waning Current Symptoms Are (Timing): Still Present Severity: Moderate Location Of Pain/Discomfort: Epigastric Radiation Of Pain To:: Other (LUE) Quality Of Discomfort: Unable To Describe Exacerbating Factors: Walking Alleviating Factors: Rest Additional History Per: Prior Records Past Medical History Reviewed: Historical Data, Nursing Documentation, Vital Signs Vital Signs: Last Vital Signs Temp 97.7 F 04/01/18 12:55 Pulse 53 L 04/01/18 13:58 Resp 13 04/01/18 13:58 BP 141/67 04/01/18 13:58 Pulse Ox 97 04/01/18 14:34 - Medical History PMH: CAD, Gastrointestinal Ulcer, HTN, Hypercholesterolemia Surgical History: Coronary Stent (3-4 YRS AGO), Endoscopy Family History: States: Unknown Family Hx - Social History Hx Tobacco Use: No Hx Alcohol Use: No Hx Substance Use: No - Immunization History Hx Tetanus Toxoid Vaccination: No Hx Influenza Vaccination: No Hx Pneumococcal Vaccination: No Review Of Systems Except As Marked, All Systems Reviewed And Found Negative. Constitutional: Negative for: Fever Respiratory: Positive for: SOB with Excertion. Negative for: Hemoptysis Gastrointestinal: Positive for: Abdominal Pain. Negative for: Vomiting, Diarrhea, Melena, Hematochezia, Hematemesis Musculoskeletal: Negative for: Neck Pain, Leg Pain Skin: Negative for: Rash Neurological: Negative for: Weakness, Numbness Physical Exam - Physical Exam Appears: Non-toxic, No Acute Distress Skin: Normal Color, Warm, Dry Head: Atraumatic, Normacephalic Eye(s): bilateral: Normal Inspection, PERRL, EOMI Neck: Normal ROM, Supple Cardiovascular: Rhythm Regular Respiratory: Normal Breath Sounds, No Accessory Muscle Use Gastrointestinal/Abdominal: Soft, Tenderness (mild epigastric), No Guarding, No Rebound Back: No CVA Tenderness Extremity: Normal ROM, No Pedal Edema, No Calf Tenderness Neurological/Psych: Oriented x3, Normal Motor, Normal Sensation ED Course And Treatment - Laboratory Results Result Diagrams: 04/01/18 13:38 04/01/18 13:38 ECG: Interpreted By Me, Viewed By Me ECG Rhythm: Sinus Bradycardia, Nonspecific Changes ECG Interpretation: No Changes From Prior Interpretation Of ECG: Q waves in leads III and aVF Rate From EC O2 Sat by Pulse Oximetry: 97 Pulse Ox Interpretation: Normal - Radiology CXR: Viewed By Me, Read By Radiologist CXR Interpretation: Yes: No Acute Disease, Cardiomegaly Progress - Interventions Interventions:: Observation - Medications Administered Oral: Aspirin (taken by pt at home today) Intravenous: H-2 darrion - Data Reviewed Data Reviewed: Lab, Diagnostic imaging, EKG, Old records - Patient Status Patient status: Partially improved - Continuity of Care Discussed patient case with:: Patient, Family-HIPPA compliant, ED Nurse, PMD Disposition Discussed With : Coral Jackson Comment: He wants pt placed on observation on his service. Doctor Will See Patient In The: Hospital Counseled Patient/Family Regarding: Studies Performed, Diagnosis - Disposition Disposition: HOSPITALIZED Disposition Time: 15:38 Condition: FAIR - Clinical Impression Clinical Impression: Upper abdominal pain, Left arm pain
--- NOTE | 2018-04-01 18:40 | CP.PCM.HP ---
History of Present Illness - History of Present Illness History of Present Illness: Chief complaint: Chest pain. History: 73-year-old male with history of hypertension, hypercholesteremia, CAD, status post stent in the heart, obstructive sleep apnea, recurrent chest pain came to the office with worsening chest pain. 2 weeks ago patient was doing well without any pain. He was initially thought that the Zetia causing the chest pain, after stopping, the pain improved markedly. But again he started noticing pain day before yesterday, and gradually got worse , lasted unable to sleep, the pain was localized over the epigastric, sometimes radiating to the left side of the chest. Since Saturday he started having some heaviness in the left upper extremity, associate with the numbness and tingling. He also feels something in the left side of the neck, associate with the some discomfort, sometimes headache noted. Past medical history: Hypertension, hypercholesteremia, CAD, status post a stent, gout, obstructive sleep apnea. Allergy: Indomethacin. Personal history: Patient is a lifelong nonsmoker nonalcoholic. Lives in the family. Surgical history includes none Review of systems: No headache noted, no visual symptoms. Denies any nausea vomiting, midsternal chest discomfort noted, mild exertional dyspnea present. No GI symptoms otherwise. Leg swelling is negative. On examination: HEENT PERRLA, neck supple No thyromegaly was noted and no cervical adenopathy noted Chest bilateral good air entry, no wheezing or rales noted CVS regular heart sound, no murmur Abdomen soft and no organomegaly Extremities no pedal edema, no leg swelling, pedal pulses are good. SURVEILLANCE AGENT alert awake oriented x3 no functional neurological deficit. The patient hospital labs including the emergency room labs, EKG, chest x-ray reviewed No abnormalities noted. Assessment/condition: 73-year-old male with history of hypertension, hypercholesteremia, CAD, status post a stent in the heart, obstructive sleep apnea, gout. Patient admitted with a possible acute chest discomfort, chest pain, cardiac in origin most likely, will wait for cardiology workup. Underlaying lung disease cannot be ruled out, we'll get a CT of the abdomen and pelvis and chest. Medications reviewed will continue the current treatment and will follow the patient. Glucose monitoring. Also patient has a left dominant upper extremity numbness and tingling, underlying central cause cannot be ruled out. Suggested MRI of the brain to rule out any underlying malignancy. Possible CVA cannot be ruled out, but less likely. DVT GI prophylaxis. We will follow the patient Past Patient History - Infectious Disease Hx of Infectious Diseases: None - Tetanus Immunizations Tetanus Immunization: Unknown - Past Medical History & Family History Past Medical History?: Yes - Past Social History Smoking Status: Never Smoked - CARDIAC Hx Hypercholesterolemia: Yes Hx Hypertension: Yes - PULMONARY Hx Respiratory Disorders: No - NEUROLOGICAL Hx Neurological Disorder: No - HEENT Hx HEENT Problems: No - RENAL Hx Chronic Kidney Disease: No - ENDOCRINE/METABOLIC Hx Endocrine Disorders: No - HEMATOLOGICAL/ONCOLOGICAL Hx Blood Disorders: No - INTEGUMENTARY Hx Dermatological Problems: No - MUSCULOSKELETAL/RHEUMATOLOGICAL Hx Musculoskeletal Disorders: Yes Hx Falls: No Hx Gout: Yes - GASTROINTESTINAL Hx Gastrointestinal Disorders: Yes Hx Ulcer: Yes - GENITOURINARY/GYNECOLOGICAL Hx Genitourinary Disorders: No - PSYCHIATRIC Hx Substance Use: No - SURGICAL HISTORY Hx Coronary Stent: Yes (3-4 YRS AGO) - ANESTHESIA Hx Anesthesia: Yes Hx Anesthesia Reactions: No Hx Malignant Hyperthermia: No Meds Allergies/Adverse Reactions: Allergies Allergy/AdvReac Type Severity Reaction Status Date / Time No Known Allergies Allergy Verified 06/07/17 17:42 Results - Vital Signs Recent Vital Signs: Last Vital Signs Temp 97.7 F 04/01/18 12:55 Pulse 76 04/01/18 18:12 Resp 16 04/01/18 18:12 BP 145/77 04/01/18 18:12 Pulse Ox 97 04/01/18 18:12 - Labs Result Diagrams: 04/01/18 13:38 04/01/18 13:38 Labs: Laboratory Results - last 24 hr 04/01/18 04/01/18 04/01/18 13:38 13:38 13:38 WBC 5.4 RBC 4.68 Hgb 14.7 Hct 42.7 MCV 91.2 MCH 31.4 H MCHC 34.5 RDW 13.9 Plt Count 181 MPV 9.0 Neut % (Auto) 45.1 L Lymph % (Auto) 32.3 [place] % (Auto) 19.1 H Eos % (Auto) 2.7 Baso % (Auto) 0.8 Neut # (Auto) 2.4 Lymph # (Auto) 1.7 [place] # (Auto) 1.0 H Eos # (Auto) 0.1 Baso # (Auto) 0.0 PT 11.8 INR 1.1 APTT 32 Sodium 140 Potassium 4.1 Chloride 102 Carbon Dioxide 25 Anion Gap 18 BUN 23 H Creatinine 1.0 Est GFR ( Amer) > 60 Est GFR (Non-Af Amer) > 60 Random Glucose 96 Calcium 9.3 Total Bilirubin 1.4 H AST 53 ALT 72 Alkaline Phosphatase 61 Troponin I < 0.0120 NT-Pro-B Natriuret Pep 98.8 Total Protein 8.1 Albumin 4.5 Globulin 3.6 Albumin/Globulin Ratio 1.2 Lipase 87
[2018-04-01 19:06] VITALS: RESP 20
[2018-04-01] MEDS ORDERED: Pneumococcal 23-Valent Vaccine IM ONE (19:56)
[2018-04-01 20:46] LABS: CK-MB 0.29 ng/mL (0.0-3.38)
[2018-04-02] MEDS ORDERED: Gadodiamide 287 mg/ml 20 ml IV ONE (10:36)
--- NOTE | 2018-04-02 11:22 | MRI ---
Date of service: 04/02/2018 PROCEDURE: MRI BRAIN WITH AND WITHOUT CONTRAST HISTORY: left arm weaknsess COMPARISON: None. TECHNIQUE: Multiplanar, multisequence MR images of the brain were obtained with and without intravenous contrast enhancement. FINDINGS: HEMORRHAGE: None DWI: No evidence of an acute or early subacute infarction. BRAIN PARENCHYMA: Good corticomedullary differentiation is seen. Proportional, diffuse expansion of the ventriculosulcal and cisternal spaces is appreciated with white matter signal changes compatible with diffuse cerebral atrophy and chronic microangiopathy. No suspicious extra-axial fluid collection is identified and the midline brain anatomy appears grossly nonfocal as imaged. There is no mass effect throughout. There is a tiny chronic lacune at the inferior left cerebellum. Empty sella noted. ENHANCEMENT: No abnormal intracranial enhancement. VENTRICLES: Unremarkable. No hydrocephalus. CRANIUM: Unremarkable. ORBITS: Grossly unremarkable. PARANASAL SINUSES/MASTOIDS: Clear VASCULAR SYSTEM: Skull base flow voids intact. OTHER FINDINGS: None . IMPRESSION: 1. No definite intracranial hemorrhage, mass effect or acute/subacute brain infarction. 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 2. Normal intracranial enhancement pattern throughout.
--- NOTE | 2018-04-02 11:58 | CP.PCM.CON ---
<Diane Schmitz - Last Filed: 04/02/18 17:52> History of Present Illness - History of Present Illness History of Present Illness: Cardiology Consult Note - Dr Zuniga Patient is a 73 year old male with past medical history of HTN, Hypercholesterolemia, CAD s/p stent placement, Obstructive sleep apnea who was sent to the hospital by PMD for chest pain. Patient states that he has been having intermittent chest pain for the past month. Chest pain has been gradually getting worse. Pain is located in the epigastric region and radiates up his chest. He also reports having intermittent numbness in both his arms. Currently he denies any chest pain or dyspnea. Allergies: NKDA Medical History: HTN, Hypercholesterolemia, CAD s/p 4 stents, MELISSA, gout Surgical History: Multi vessel PCI Social History: Denies alcohol, tobacco, drug use Family History: Brother - CAD Past Patient History - Infectious Disease Hx of Infectious Diseases: None - Tetanus Immunizations Tetanus Immunization: Unknown - Past Medical History & Family History Past Medical History?: Yes - Past Social History Smoking Status: Never Smoked - CARDIAC Hx Hypercholesterolemia: Yes Hx Hypertension: Yes - PULMONARY Hx Respiratory Disorders: No - NEUROLOGICAL Hx Neurological Disorder: No - HEENT Hx HEENT Problems: No - RENAL Hx Chronic Kidney Disease: No - ENDOCRINE/METABOLIC Hx Endocrine Disorders: No - HEMATOLOGICAL/ONCOLOGICAL Hx Blood Disorders: No - INTEGUMENTARY Hx Dermatological Problems: No - MUSCULOSKELETAL/RHEUMATOLOGICAL Hx Musculoskeletal Disorders: Yes Hx Falls: No Hx Gout: Yes - GASTROINTESTINAL Hx Gastrointestinal Disorders: Yes Hx Ulcer: Yes - GENITOURINARY/GYNECOLOGICAL Hx Genitourinary Disorders: No - PSYCHIATRIC Hx Substance Use: No - SURGICAL HISTORY Hx Coronary Stent: Yes (3-4 YRS AGO) - ANESTHESIA Hx Anesthesia: Yes Hx Anesthesia Reactions: No Hx Malignant Hyperthermia: No Meds Allergies/Adverse Reactions: Allergies Allergy/AdvReac Type Severity Reaction Status Date / Time No Known Allergies Allergy Verified 06/07/17 17:42 - Medications Medications: Current Medications Allopurinol (Zyloprim) 100 mg PO DAILY [facility] Last Admin: 04/02/18 09:33 Dose: 100 mg Aspirin (Ecotrin) 81 mg PO DAILY [facility] Last Admin: 04/02/18 09:33 Dose: 81 mg Iohexol (Omnipaque 240 (50 Ml)) 50 ml PO ONCE ONE Stop: 04/02/18 12:01 Losartan Potassium (Cozaar) 25 mg PO DAILY [facility] Last Admin: 04/02/18 09:33 Dose: 25 mg Pantoprazole Sodium (Protonix Inj) 40 mg IVP DAILY [facility] Last Admin: 04/02/18 09:33 Dose: 40 mg Physical Exam - Constitutional Appears: Well, No Acute Distress - Head Exam Head Exam: ATRAUMATIC, NORMAL INSPECTION - Eye Exam Eye Exam: EOMI, Normal appearance Pupil Exam: NORMAL ACCOMODATION - ENT Exam ENT Exam: Mucous Membranes Moist - Neck Exam Neck exam: Positive for: Full Rom - Respiratory Exam Respiratory Exam: Clear to Auscultation Bilateral, NORMAL BREATHING PATTERN. absent: Rales, Rhonchi, Wheezes - Cardiovascular Exam Cardiovascular Exam: REGULAR RHYTHM, +S1, +S2 - GI/Abdominal Exam GI & Abdominal Exam: Normal Bowel Sounds, Soft - Extremities Exam Extremities exam: Positive for: normal inspection, pedal pulses present. Negative for: calf tenderness - Back Exam Back exam: NORMAL INSPECTION - Neurological Exam Neurological exam: Alert, Oriented x3 - Psychiatric Exam Psychiatric exam: Normal Affect, Normal Mood - Skin Skin Exam: Dry, Normal Color, Warm Results - Vital Signs Recent Vital Signs: Last Vital Signs Temp 98.6 F 04/02/18 07:40 Pulse 67 04/02/18 08:00 Resp 20 04/02/18 07:40 BP 135/81 04/02/18 07:40 Pulse Ox 95 04/02/18 07:40 - Labs Result Diagrams: 04/01/18 13:38 04/01/18 13:38 Labs: Laboratory Results - last 24 hr 04/01/18 04/01/18 04/01/18 13:38 13:38 13:38 WBC 5.4 RBC 4.68 Hgb 14.7 Hct 42.7 MCV 91.2 MCH 31.4 H MCHC 34.5 RDW 13.9 Plt Count 181 MPV 9.0 Neut % (Auto) 45.1 L Lymph % (Auto) 32.3 [place] % (Auto) 19.1 H Eos % (Auto) 2.7 Baso % (Auto) 0.8 Neut # (Auto) 2.4 Lymph # (Auto) 1.7 [place] # (Auto) 1.0 H Eos # (Auto) 0.1 Baso # (Auto) 0.0 PT 11.8 INR 1.1 APTT 32 Sodium 140 Potassium 4.1 Chloride 102 Carbon Dioxide 25 Anion Gap 18 BUN 23 H Creatinine 1.0 Est GFR ( Amer) > 60 Est GFR (Non-Af Amer) > 60 Random Glucose 96 Calcium 9.3 Total Bilirubin 1.4 H AST 53 ALT 72 Alkaline Phosphatase 61 Total Creatine Kinase CK-MB (Mass) Troponin I < 0.0120 NT-Pro-B Natriuret Pep 98.8 Total Protein 8.1 Albumin 4.5 Globulin 3.6 Albumin/Globulin Ratio 1.2 Lipase 87 04/01/18 20:00 WBC RBC Hgb Hct MCV MCH MCHC RDW Plt Count MPV Neut % (Auto) Lymph % (Auto) [place] % (Auto) Eos % (Auto) Baso % (Auto) Neut # (Auto) Lymph # (Auto) [place] # (Auto) Eos # (Auto) Baso # (Auto) PT INR APTT Sodium Potassium Chloride Carbon Dioxide Anion Gap BUN Creatinine Est GFR ( Amer) Est GFR (Non-Af Amer) Random Glucose Calcium Total Bilirubin AST ALT Alkaline Phosphatase Total Creatine Kinase 82 CK-MB (Mass) 0.29 Troponin I < 0.0120 NT-Pro-B Natriuret Pep Total Protein Albumin Globulin Albumin/Globulin Ratio Lipase Assessment & Plan - Assessment and Plan (Free Text) Assessment: A/P: Patient is a 73 year old male with past medical history of HTN, Hypercholesterolemia, CAD s/p stent placement, Obstructive sleep apnea who was sent to the hospital by PMD for intermittent chest pain for the past month. 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 Plan to be discussed with Dr Efrain Schmitz DO PGY-2 <Israel Zuniga - Last Filed: 04/02/18 19:38> Meds - Medications Medications: Current Medications Allopurinol (Zyloprim) 100 mg PO DAILY [facility] Last Admin: 04/02/18 09:33 Dose: 100 mg Aspirin (Ecotrin) 81 mg PO DAILY [facility] Last Admin: 04/02/18 09:33 Dose: 81 mg Losartan Potassium (Cozaar) 25 mg PO DAILY [facility] Last Admin: 04/02/18 09:33 Dose: 25 mg Pantoprazole Sodium (Protonix Inj) 40 mg IVP DAILY [facility] Last Admin: 04/02/18 09:33 Dose: 40 mg Results - Vital Signs Recent Vital Signs: Last Vital Signs Temp 97.6 F 04/02/18 15:10 Pulse 60 04/02/18 15:10 Resp 20 04/02/18 15:10 BP 121/71 04/02/18 15:10 Pulse Ox 96 04/02/18 15:10 - Labs Result Diagrams: 04/01/18 13:38 04/01/18 13:38 Labs: Laboratory Results - last 24 hr 04/01/18 04/02/18 20:00 14:28 Total Creatine Kinase 82 118 CK-MB (Mass) 0.29 0.28 Troponin I < 0.0120 < 0.0120 Assessment & Plan - Assessment and Plan (Free Text) Assessment: Patient seen and evaluated personally by me Plan of care d/w the resident and as documented
[2018-04-02] MEDS ORDERED: Iohexol 240 (50 ml) PO ONE (12:00)
--- NOTE | 2018-04-02 14:29 | CARD ---
APPROVED REPORT Date of service: 04/02/2018 EXAM: Two-dimensional and M-mode echocardiogram with Doppler and color Doppler. Other Information Quality : GoodRhythm : INDICATION Cardiac Disease: CAD Chest Pain RISK FACTORS Hypertension Hyperlipidemia 2D DIMENSIONS IVSd1.1 (0.7-1.1cm)LVDd3.5 (3.9-5.9cm) PWd0.9 (0.7-1.1cm)LVDs2.3 (2.5-4.0cm) FS (%) 35.6 %LVEF (%)66.1 (>50%) M-Mode DIMENSIONS Left Atrium (MM)3.81 (2.5-4.0cm)IVSd0.97 (0.7-1.1cm) Aortic Root3.21 (2.2-3.7cm)LVDd4.26 (4.0-5.6cm) Aortic Cusp Exc.2.11 (1.5-2.0cm)PWd1.02 (0.7-1.1cm) FS (%) 44 %LVDs2.40 (2.0-3.8cm) LVEF (%)70 (>50%) Mitral Valve MV E Bdcfgjsi61.0cm/sMV A Dzmeepjj35.2cm/sE/A ratio0.7 TDI E/Lateral E'0.0E/Medial E'0.0 Tricuspid Valve TR Peak Uxzdraad860fr/sTR Peak Gr.[id number] LEFT VENTRICLE The left ventricle is normal size. There is normal left ventricular wall thickness. The left ventricular function is normal. The left ventricular ejection fraction is within the normal range. There is normal LV segmental wall motion. Transmitral Doppler flow pattern is Grade I-abnormal relaxation pattern. RIGHT VENTRICLE The right ventricle is normal size. There is normal right ventricular wall thickness. The right ventricular systolic function is normal. ATRIA The left atrium size is normal. The right atrium size is normal. AORTIC VALVE The aortic valve is mildly thickened. There is trace to mild aortic regurgitation. There is no aortic valvular stenosis. MITRAL VALVE The mitral valve is mildly thickened. There is no mitral valve stenosis. There is no mitral valve regurgitation noted. TRICUSPID VALVE The tricuspid valve is normal in structure. There is no tricuspid valve stenosis. PULMONIC VALVE The pulmonary valve is normal in structure. There is mild pulmonic valvular regurgitation. GREAT VESSELS The aortic root is normal in size. PERICARDIAL EFFUSION There is a trace loculated anterior pericardial effusion. <Conclusion> The left ventricle is normal size. There is normal left ventricular wall thickness. The left ventricular function is normal. The left ventricular ejection fraction is within the normal range. There is normal LV segmental wall motion. Transmitral Doppler flow pattern is Grade I-abnormal relaxation pattern. There is trace to mild aortic regurgitation. There is mild pulmonic valvular regurgitation.
--- NOTE | 2018-04-02 15:35 | CARD ---
APPROVED REPORT Date of service: 04/01/2018 EKG Measurement Heart [id number] <Conclusion> Sinus bradycardia Left axis deviation Inferior infarct, age undetermined Abnormal ECG
[2018-04-02 16:11] VITALS: BP 121/71; PULSE 60; TEMP 97.6; O2SAT 96
[2018-04-02 16:17] LABS: CK-MB 0.28 ng/mL (0.0-3.38)
--- NOTE | 2018-04-02 16:28 | CT ---
Date of service: 04/02/2018 PROCEDURE: CT Chest, Abdomen and Pelvis without intravenous contrast HISTORY: abdo pain chest pain COMPARISON: CT abdomen/ pelvis 11/16/2016 TECHNIQUE: Radiation dose: Total exam DLP = 888.99 mGy-cm. This CT exam was performed using one or more of the following dose reduction techniques: Automated exposure control, adjustment of the mA and/or kV according to patient size, and/or use of iterative reconstruction technique. FINDINGS: CT CHEST WITHOUT CONTRAST: LUNGS: No infiltrate. 3 mm subpleural nodule in the left upper lobe, series 4, image 30. 3 mm pleural-based nodule along the major fissure on series 4, image 58. These nodules are of sufficiently small size that no follow-up is required as per Fleischner society criteria. However, there is a 9 mm subpleural nodule in the right lower lobe on series 4, image 72. This was not evident on prior abdominal/ pelvic CT examination. Follow-up is advised with CT imaging. MEDIASTINUM: Unremarkable. Normal caliber aorta and pulmonary arterial trunk. Normal size heart. Coronary arterial calcification is noted. LYMPH NODES: Numerous shotty subcentimeter mediastinal nodes are seen, of uncertain significance. There are enlarged lymph nodes seen in the sub carinal space. No definite hilar lymphadenopathy. Evaluation of the rajesh is limited by the absence of intravenous contrast administration. PLEURA: Unremarkable. No pneumothorax. No pleural fluid. BONES: Unremarkable. OTHER FINDINGS: None. CT ABDOMEN AND PELVIS: LIVER: Normal size, contour and attenuation. Few nodular calcifications are seen in the superior right hepatic lobe, beneath the dome of the liver common nonspecific. Possible calcified granulomata. No change from prior. No mass. No biliary dilatation. GALLBLADDER AND BILE DUCTS: Unremarkable. PANCREAS: Unremarkable. No gross lesion or ductal dilatation. SPLEEN: Unremarkable. ADRENALS: Unremarkable. No mass. KIDNEYS AND URETERS: Unremarkable. No hydronephrosis. No solid mass. VASCULATURE: Unremarkable. No aortic aneurysm. BOWEL: Unremarkable. No obstruction. No gross mural thickening. APPENDIX: Not identified. No secondary findings. PERITONEUM: Unremarkable. No free fluid. No free air. LYMPH NODES: Unremarkable. No enlarged lymph nodes. BLADDER: Unremarkable. REPRODUCTIVE: Normal prostate BONES: No acute fracture. OTHER FINDINGS: None. IMPRESSION: No acute abnormality. Mild mediastinal lymphadenopathy, nonspecific. 9 mm right lower lobe pulmonary nodule of uncertain significance. Followup advised. Additional minor findings as above.
== END 2018-04-02 20:32 | disposition home or self-care (01) ==
LOC: C.ER 12:38 → C.9E 15:39 → C.6T 18:05
PROVIDERS: ADMIT Internal Medicine; ATTEND Internal Medicine
DX: R07.9 Chest pain, unspecified (principal); E78.00 Pure hypercholesterolemia, unspecified; I10 Essential (primary) hypertension; I25.10 Atherosclerotic heart disease of native coronary artery without angina pectoris; Z95.5 Presence of coronary angioplasty implant and graft; G47.33 Obstructive sleep apnea (adult) (pediatric); M10.9 Gout, unspecified
CPT/HCPCS: 36415; 70553; 71045; 71250; 74176; 80053; 83690; 83880; 84484; 85025; 85610; 85730; 93005; 93306; 96374; 99285; A9579; C9113; G0378; Q9966

== ENCOUNTER 2018-04-17 15:03 | Emergency (ER) | payer MEDICARE ==
[2018-04-17 15:03] VITALS: BMI 29.0
[2018-04-17 15:09] VITALS: BP 153/70; PULSE 54; RESP 16; TEMP 98.7; O2SAT 97
[2018-04-17 16:29] LABS: BASO # 0.1 K/uL (0.0-0.2); EOS # 0.2 K/uL (0.0-0.7); HEMOGLOBIN 13.8 g/dL (12.0-18.0); LYMPH # 1.6 K/uL (1.0-4.3); LYMPH % 31.6 % (20.0-40.0); NEUT # 2.1 K/uL (1.8-7.0)
[2018-04-17 16:42] LABS: ALB/GLOB RATIO 1.3 (1.0-2.1); ALBUMIN 4.3 g/dL (3.5-5.0); ALT/SGPT 72 U/L (21-72); AST/SGOT 48 U/L (17-59); BLOOD UREA NITROGEN 20 mg/dL (9-20); CALCIUM 9.5 mg/dl (8.6-10.4); GFR NON-AFRICAN AMERICAN > 60; LIPASE 96 U/L (23-300)
[2018-04-17 16:47] LABS: BASO % 1.3 % (0.0-2.0); EOS % 3.9 % (0.0-4.0); MEAN CELL VOLUME 90.3 fL (80.0-94.0); MEAN CORPUSCULAR HEMOGLOBIN 31.2 pg (27.0-31.0); MEAN CORPUSCULAR HGB CONC 34.5 g/dL (33.0-37.0); MEAN PLATELET VOLUME 8.4 fL (7.2-11.7); MONO % 19.8 % (0.0-10.0); NEUT % 43.4 % (50.0-75.0); NRBC % 0.3 % (0.0-2.0); RBC 4.43 Mil/uL (4.40-5.90); RED CELL DISTRIBUTION WIDTH 13.7 % (11.5-14.5); WHITE BLOOD COUNT 4.9 K/uL (4.8-10.8)
--- NOTE | 2018-04-17 16:47 | C.PDOC ---
History Of Present Illness 73 year old male patient with cardiac disease with stent presents to the ER with c/o RUQ epigastric pain. Patient reports the pain radiates to the chest and back. He notes the pain is sharp and exacerbates when he eats. Patient states he has had this before and was admitted for same on 04/02. Patient has multiple GI workups. Patient denies fever and chills. no sob,. no fever or vomiting. +nausea Time Seen by Provider: 04/17/18 15:31 Chief Complaint (Nursing): Chest Pain History Per: Patient History/Exam Limitations: no limitations Onset/Duration Of Symptoms: Hrs Current Symptoms Are (Timing): Still Present Exacerbating Factors: Other (eating) Past Medical History Reviewed: Historical Data, Nursing Documentation, Vital Signs Vital Signs: Last Vital Signs Temp 98.7 F 04/17/18 15:10 Pulse 54 L 04/17/18 15:10 Resp 16 04/17/18 15:10 BP 153/70 H 04/17/18 15:10 Pulse Ox 97 04/18/18 18:10 - Medical History PMH: CAD, Gastrointestinal Ulcer, HTN, Hypercholesterolemia Surgical History: Coronary Stent (3-4 YRS AGO), Endoscopy Family History: States: Unknown Family Hx - Social History Hx Tobacco Use: No Hx Alcohol Use: No Hx Substance Use: No - Immunization History Hx Tetanus Toxoid Vaccination: No Hx Influenza Vaccination: No Hx Pneumococcal Vaccination: No Review Of Systems Constitutional: Negative for: Fever Cardiovascular: Positive for: Chest Pain (radiates from epigastric pain) Musculoskeletal: Positive for: Back Pain (radiates from epigastric pain), Other (RUQ epigastric pain ) Physical Exam - Physical Exam Appears: Non-toxic, No Acute Distress Skin: Warm, Dry Head: Atraumatic, Normacephalic Eye(s): bilateral: PERRL, EOMI Oral Mucosa: Moist Neck: Supple Chest: No Deformity, No Tenderness Cardiovascular: Rhythm Regular, No Murmur Respiratory: Normal Breath Sounds, No Rales, No Rhonchi, No Wheezing Gastrointestinal/Abdominal: Bowel Sounds, Soft, Tenderness (RUQ epigastric tenderness neg murphys sign), No Distention, No Guarding, No Rebound Back: No CVA Tenderness Neurological/Psych: Oriented x3, Normal Speech, Normal Cognition ED Course And Treatment - Laboratory Results Result Diagrams: 04/17/18 16:23 04/17/18 16:23 ECG Interpretation: No Changes From Prior Interpretation Of ECG: sinus bradycardia with sinus arrythymia. inferior infarct. age undertermined. Rate From EC O2 Sat by Pulse Oximetry: 97 (RA) Pulse Ox Interpretation: Normal - CT Scan/US Abdomen US Other Rad Studies (CT/US): Read By Radiologist, Radiology Report Reviewed CT/US Interpretation: Accession No. : [id number]. Patient Name / ID : MARCIAL WELCH / [id number]. Exam Date : 04/17/2018 16:25:43 ( Approved ). Study Comment : Sex / Age : M / 73Y. Creator : Rajani Dukes V. Dictator : Rajani Dukes V. Volunteer Services Supervisor : Scale Technician : Rajani Dukes V. Approver2 : Report Date : 2017 16:52:41. My Comment : . Date of service: 04/17/2018. HISTORY: ruq pain. COMPARISON: CT abdomen and pelvis 04/02/2018. TECHNIQUE: Sonographic evaluation of the right upper quadrant of the abdomen. FINDINGS: LIVER: Measures 18.7 cm in length. Diffuse the increased in echogenicity of the liver parenchyma. No mass. There is coarse calcification 1.4 x 0.9 x 1.2 cm in size noted in the right hepatic lobe. No intrahepatic bile duct dilatation. GALLBLADDER: Unremarkable. No gallstones. COMMON BILE DUCT: Measures 4 mm. No stones. No dilatation. PANCREAS: Unremarkable as visualized. No mass. No ductal dilatation. RIGHT KIDNEY: Measures 11.4 x 5.7 x 5.3 cm in length. Normal echogenicity. No calculus, mass, or hydronephrosis. AORTA: No aneurysmal dilatation. IVC: Unremarkable. OTHER FINDINGS: None . IMPRESSION: Hepatomegaly. Hepatic steatosis. Right hepatic lobe calcified granuloma. No gallbladder pathology noted. Medical Decision Making Medical Decision Making: Impression: RUQ epigastric pain radiating to the chest and back. Plans: -- blood work -- pepcid -- zofran injection -- UA -- US abdomen 1759 pt with normal labs, normal ruq sono, neg trop, (pt had cardiac workup last admission, pain since last night), unchanged ekg. pt feeling better after zofran, pepcid and maalox. re-exam of abdomen with minimal tenderness in epigastric and ruq. discussed with Dr Jackson and agrees with plan to d/c patient and send to f/u with Dr Jade, GI, keep food diary. will add zofran. change ompeprazole to pantoprozole. Disposition Discussed With Dr.: Coral Jackson Doctor Will See Patient In The: Office Counseled Patient/Family Regarding: Studies Performed, Diagnosis, Need For Followup, Rx Given - Disposition Referrals: Coral Jackson MD [Staff Provider] - Melquiades Jade MD [Staff Provider] - Disposition: HOME/ ROUTINE Disposition Time: 18:11 Condition: IMPROVED Additional Instructions: Please follow up with Dr Jade as soon as possible. Stop omeprazole and start pantoprozole Keep food diary Take zofran if nauseous Return to ER for any worse symptoms. Try Tums or Maalox if needed. 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 - Scribe Statement The provider has reviewed the documentation as recorded by the Hugh Juárez Do All medical record entries made by the Scribe were at my direction and personally dictated by me. I have reviewed the chart and agree that the record accurately reflects my personal performance of the history, physical exam, medical decision making, and the department course for this patient. I have also personally directed, reviewed, and agree with the discharge instructions and disposition.
--- NOTE | 2018-04-17 16:54 | US ---
Date of service: 04/17/2018 HISTORY: ruq pain COMPARISON: CT abdomen and pelvis 04/02/2018 TECHNIQUE: Sonographic evaluation of the right upper quadrant of the abdomen. FINDINGS: LIVER: Measures 18.7 cm in length. Diffuse the increased in echogenicity of the liver parenchyma. No mass. There is coarse calcification 1.4 x 0.9 x 1.2 cm in size noted in the right hepatic lobe. No intrahepatic bile duct dilatation. GALLBLADDER: Unremarkable. No gallstones. COMMON BILE DUCT: Measures 4 mm. No stones. No dilatation. PANCREAS: Unremarkable as visualized. No mass. No ductal dilatation. RIGHT KIDNEY: Measures 11.4 x 5.7 x 5.3 cm in length. Normal echogenicity. No calculus, mass, or hydronephrosis. AORTA: No aneurysmal dilatation. IVC: Unremarkable. OTHER FINDINGS: None . IMPRESSION: Hepatomegaly. Hepatic steatosis. Right hepatic lobe calcified granuloma No gallbladder pathology noted.
[2018-04-17] MEDS ORDERED: Aluminum Hydroxide/Magnesium Hydroxide Susp (30 mL) PO STA (17:12)
[2018-04-17] MEDS ORDERED: Aluminum Hydroxide/Magnesium Hydroxide Susp (30 mL) ONE (17:30)
--- NOTE | 2018-04-18 18:00 | CARD ---
APPROVED REPORT Date of service: 04/17/2018 EKG Measurement Heart [id number] TN [id number] <Conclusion> Sinus bradycardia with sinus arrhythmia Inferior infarct, age undetermined Abnormal ECG
== END 2018-04-17 18:37 | disposition home or self-care (01) ==
LOC: C.ER 15:03
DX: K29.70 Gastritis, unspecified, without bleeding (principal)
CPT/HCPCS: 76705; 80053; 83690; 84484; 85025; 93005; 96374; 96375; 99283; J2405

== ENCOUNTER 2019-01-02 08:26 | Outpatient (CLI) | payer MEDICARE | END 2019-01-02 08:27 | disposition home or self-care (01) | LOC: C.LAB 08:26 | DX: I25.10 Atherosclerotic heart disease of native coronary artery without angina pectoris (principal); E78.00 Pure hypercholesterolemia, unspecified; E11.9 Type 2 diabetes mellitus without complications; I10 Essential (primary) hypertension; R94.8 Abnormal results of function studies of other organs and systems ==

== ENCOUNTER 2019-01-03 15:48 | Inpatient (IN) | payer MEDICARE ==
[2019-01-03 15:48] VITALS: BMI 29.0
[2019-01-03] MEDS ORDERED: Heparin25000 units/250ml 1/2NS 25,000 UNITS/250 ML BAG IV STA (16:27)
[2019-01-03] MEDS ORDERED: Aspirin 325 mg EC Tablets PO STA (16:27)
--- NOTE | 2019-01-03 16:41 | C.PDOC ---
History Of Present Illness 73 y/o male, with history of CAD with stents, hypertension, hyperlipidemia, and diabetes (?), comes in to ED with complaints of chest pain this afternoon lasting about 25 minutes. States the pain was midsternal and squeezing in sens ation, radiating to both shoulders. Chest pain associated with some SOB, nausea, sweating, and dizziness. Symptoms have abated at this time. On arrival, vital signs are within normal limits. Time Seen by Provider: 01/03/19 15:55 Chief Complaint (Nursing): Chest Pain History Per: Patient History/Exam Limitations: no limitations Onset/Duration Of Symptoms: Hrs Current Symptoms Are (Timing): Still Present Past Medical History Reviewed: Historical Data, Nursing Documentation, Vital Signs Vital Signs: Last Vital Signs Temp 97.7 F 01/03/19 15:52 Pulse 58 L 01/03/19 15:52 Resp 18 01/03/19 15:52 BP 106/63 01/03/19 15:52 Pulse Ox 97 01/03/19 15:52 Primary Care Provider: Coral Jackson - Medical History PMH: CAD, Gastrointestinal Ulcer, HTN, Hypercholesterolemia Denies: Chronic Kidney Disease Surgical History: Coronary Stent (3-4 YRS AGO), Endoscopy Family History: States: No Known Family Hx - Social History Hx Tobacco Use: No Hx Alcohol Use: No Hx Substance Use: No - Immunization History Hx Tetanus Toxoid Vaccination: No Hx Influenza Vaccination: No Hx Pneumococcal Vaccination: No Review Of Systems Except As Marked, All Systems Reviewed And Found Negative. Constitutional: Positive for: Sweats. Negative for: Fever, Chills Cardiovascular: Positive for: Chest Pain. Negative for: Palpitations Respiratory: Positive for: Shortness of Breath. Negative for: Cough Gastrointestinal: Positive for: Nausea. Negative for: Vomiting, Abdominal Pain, Diarrhea Musculoskeletal: Negative for: Neck Pain Neurological: Positive for: Headache, Dizziness Physical Exam - Physical Exam Appears: Non-toxic, No Acute Distress Skin: Warm, Dry Head: Atraumatic, Normacephalic Eye(s): bilateral: Normal Inspection Oral Mucosa: Moist Neck: Supple Cardiovascular: Rhythm Irregular, No Murmur Respiratory: Normal Breath Sounds, No Rales, No Rhonchi, No Wheezing Gastrointestinal/Abdominal: Soft, No Tenderness, Other (obese) Extremity: Other (no pitting edema) Extremity: Bilateral: Atraumatic, Normal Color And Temperature Neurological/Psych: Oriented x3, Normal Speech ED Course And Treatment - Laboratory Results Result Diagrams: 01/03/19 16:34 01/03/19 16:34 O2 Sat by Pulse Oximetry: 97 (RA) Pulse Ox Interpretation: Normal - Other Rad CXR X-Ray: Read By Radiologist Interpretation: FINDINGS: LUNGS: Poor inspiration with low lung volumes, crowded bronchovascular markings and mild bibasilar atelectasis. PLEURA: No si gnificant pleural effusion identified, no pneumothorax apparent. CARDIOVASCULAR: No aortic atherosclerotic calcification present. Heart remains enlarged. No pulmonary vascular congestion. OSSEOUS STRUCTURES: No significant abnormalities. VISUALIZED UPPER ABDOMEN: Normal. OTHER FINDINGS: None. IMPRESSION: Poor inspiration with low lung volumes, crowded bronchovascular markings and mild bibasilar atelectasis. Medical Decision Making Medical Decision Making: Differential Diagnosis: NSTEMI Plan: --Labs --Chest XR --Aspirin 325 mg PO --Heparin Discussed with Dr. Zuniga who agrees with hospitalizing patient, obs/tele. Disposition Discussed With : Coral Jackson - Disposition Disposition: HOME/ ROUTINE Disposition Time: 17:02 Condition: GUARDED - POA Present On Arrival: None - Clinical Impression Clinical Impression: Unstable angina, Chest pain - Scribe Statement The provider has reviewed the documentation as recorded by the Hugh Freedman Provider Attestation: All medical record entries made by the Hortenciaibe were at my direction and personally dictated by me. I have reviewed the chart and agree that the record accurately reflects my personal performance of the history, physical exam, medical decision making, and the department course for this patient. I have also personally directed, reviewed, and agree with the discharge instructions and disposition. Decision To Admit - Pt Status Changed To: Hospital Disposition Of: Observation - . Bed Request Type: Telemetry Admitting Physician: Coral Jackson Patient Diagnosis: Unstable angina, Chest pain
[2019-01-03] MEDS ORDERED: Aspirin 325 mg EC Tablets PO ONE (16:43)
[2019-01-03 16:45] LABS: BASO % 1.1 % (0.0-2.0); EOS # 0.1 K/uL (0.0-0.7); EOS % 1.9 % (0.0-4.0); HEMOGLOBIN 13.7 g/dL (12.0-18.0); LYMPH % 28.1 % (20.0-40.0); MEAN CELL VOLUME 90.5 fL (80.0-94.0); MEAN CORPUSCULAR HGB CONC 34.2 g/dL (33.0-37.0); MEAN PLATELET VOLUME 8.6 fL (7.2-11.7); MONO # 1.3 K/uL (0.0-0.8); MONO % 34.9 % (0.0-10.0); NEUT # 1.2 K/uL (1.8-7.0); PLATELET COUNT 140 K/uL (130-400); RBC 4.43 Mil/uL (4.40-5.90); RED CELL DISTRIBUTION WIDTH 13.9 % (11.5-14.5); WHITE BLOOD COUNT 3.6 K/uL (4.8-10.8)
[2019-01-03 16:51] LABS: ALB/GLOB RATIO 1.3 (1.0-2.1); ALBUMIN 4.2 g/dL (3.5-5.0); ALT/SGPT 45 U/L (21-72); AST/SGOT 49 U/L (17-59); BLOOD UREA NITROGEN 28 mg/dL (9-20); CALCIUM 8.9 mg/dl (8.6-10.4); GFR NON-AFRICAN AMERICAN 46
[2019-01-03 17:01] LABS: B-TYPE NATRIURETIC PEPTIDE 132 pg/mL (0-900)
[2019-01-03 17:02] LABS: INR 1.1; PARTIAL THROMBOPLASTIN TIME 29.8 SECONDS (21-34); PROTHROMBIN TIME 12.1 SECONDS (9.7-12.2)
[2019-01-03 17:33] LABS: LYMPHOCYTE 22 % (20-40); MONOCYTE 16 % (0-10); NEUTROPHIL 62 % (50-75); PLATELET ESTIMATE NORMAL (NORMAL); TOTAL CELLS COUNTED 100
--- NOTE | 2019-01-03 17:52 | RAD ---
Date of service: 01/03/2019 HISTORY: Chest pain COMPARISON: Comparison made with prior radiographs chest 04/01/2018. TECHNIQUE: 1 view obtained. FINDINGS: LUNGS: Poor inspiration with low lung volumes, crowded bronchovascular markings and mild bibasilar atelectasis. PLEURA: No significant pleural effusion identified, no pneumothorax apparent. CARDIOVASCULAR: No aortic atherosclerotic calcification present. Heart remains enlarged. No pulmonary vascular congestion. OSSEOUS STRUCTURES: No significant abnormalities. VISUALIZED UPPER ABDOMEN: Normal. OTHER FINDINGS: None. IMPRESSION: Poor inspiration with low lung volumes, crowded bronchovascular markings and mild bibasilar atelectasis.
[2019-01-03 18:41] VITALS: RESP 20
[2019-01-03 22:01] LABS: CK-MB 0.63 ng/mL (0.0-3.38)
--- NOTE | 2019-01-04 09:28 | CP.PCM.CON ---
History of Present Illness - History of Present Illness History of Present Illness: 73 M with hx of CAD s/p Multi vessel PCI admitted for chest pain Continue anti ischemic therapy Stress Vs. Cath Will evaluate Review Of Systems Except As Marked, All Systems Reviewed And Found Negative. Constitutional: Positive for: Sweats. Negative for: Fever, Chills Cardiovascular: Positive for: Chest Pain. Negative for: Palpitations Respiratory: Positive for: Shortness of Breath. Negative for: Cough Gastrointestinal: Positive for: Nausea. Negative for: Vomiting, Abdominal Pain, Diarrhea Musculoskeletal: Negative for: Neck Pain Neurological: Positive for: Headache, Dizziness Physical Exam - Physical Exam Appears: Non-toxic, No Acute Distress Skin: Warm, Dry Head: Atraumatic, Normacephalic Eye(s): bilateral: Normal Inspection Oral Mucosa: Moist Neck: Supple Cardiovascular: Rhythm Irregular, No Murmur Respiratory: Normal Breath Sounds, No Rales, No Rhonchi, No Wheezing Gastrointestinal/Abdominal: Soft, No Tenderness, Other (obese) Extremity: Other (no pitting edema) Extremity: Bilateral: Atraumatic, Normal Color And Temperature Neurological/Psych: Oriented x3, Normal Speech Past Patient History - Infectious Disease Hx of Infectious Diseases: None - Tetanus Immunizations Tetanus Immunization: Unknown - Past Medical History & Family History Past Medical History?: Yes - Past Social History Smoking Status: Never Smoked - CARDIAC Hx Hypercholesterolemia: Yes Hx Hypertension: Yes - PULMONARY Hx Respiratory Disorders: No - NEUROLOGICAL Hx Neurological Disorder: No - HEENT Hx HEENT Problems: No - RENAL Hx Chronic Kidney Disease: No - ENDOCRINE/METABOLIC Hx Endocrine Disorders: No - HEMATOLOGICAL/ONCOLOGICAL Hx Blood Disorders: No - INTEGUMENTARY Hx Dermatological Problems: No - MUSCULOSKELETAL/RHEUMATOLOGICAL Hx Musculoskeletal Disorders: Yes Hx Falls: No Hx Gout: Yes - GASTROINTESTINAL Hx Gastrointestinal Disorders: Yes Hx Ulcer: Yes - GENITOURINARY/GYNECOLOGICAL Hx Genitourinary Disorders: No - PSYCHIATRIC Hx Substance Use: No - SURGICAL HISTORY Hx Coronary Stent: Yes (3-4 YRS AGO) - ANESTHESIA Hx Anesthesia: Yes Hx Anesthesia Reactions: No Hx Malignant Hyperthermia: No Meds Allergies/Adverse Reactions: Allergies Allergy/AdvReac Type Severity Reaction Status Date / Time No Known Allergies Allergy Verified 01/03/19 15:59 - Medications Medications: Current Medications Aspirin (Ecotrin) 81 mg PO DAILY [facility] Heparin Sodium (Porcine) (Heparin) 5,000 units SC Q8 [facility] Last Admin: 01/04/19 05:56 Dose: 5,000 units Losartan Potassium (Cozaar) 25 mg PO DAILY [facility] Metoprolol Succinate (Toprol Xl) 25 mg PO DAILY [facility] Pantoprazole Sodium (Protonix Ec Tab) 40 mg PO DAILY [facility] Results - Vital Signs Recent Vital Signs: Last Vital Signs Temp 97.9 F 01/04/19 07:00 Pulse 56 L 01/04/19 08:02 Resp 20 01/04/19 07:00 BP 122/73 01/04/19 07:00 Pulse Ox 96 01/04/19 07:00 - Labs Result Diagrams: 01/03/19 16:34 01/03/19 16:34 Labs: Laboratory Results - last 24 hr 01/03/19 01/03/19 01/03/19 16:34 16:34 16:53 WBC 3.6 L RBC 4.43 Hgb 13.7 Hct 40.1 MCV 90.5 MCH 31.0 MCHC 34.2 RDW 13.9 Plt Count 140 MPV 8.6 Neut % (Auto) 34.0 L Lymph % (Auto) 28.1 [place] % (Auto) 34.9 H Eos % (Auto) 1.9 Baso % (Auto) 1.1 Neut # (Auto) 1.2 L Lymph # (Auto) 1.0 [place] # (Auto) 1.3 H Eos # (Auto) 0.1 Baso # (Auto) 0.0 Neutrophils % (Manual) 62 Lymphocytes % (Manual) 22 Monocytes % (Manual) 16 H Platelet Estimate Normal PT 12.1 INR 1.1 APTT 29.8 Sodium 135 Potassium 5.1 Chloride 98 Carbon Dioxide 22 Anion Gap 20 BUN 28 H Creatinine 1.5 Est GFR ( Amer) 56 Est GFR (Non-Af Amer) 46 Random Glucose 128 H Calcium 8.9 Total Bilirubin 1.6 H AST 49 ALT 45 Alkaline Phosphatase 47 Total Creatine Kinase CK-MB (Mass) Troponin I < 0.0120 NT-Pro-B Natriuret Pep 132 Total Protein 7.4 Albumin 4.2 Globulin 3.2 Albumin/Globulin Ratio 1.3 01/03/19 21:30 WBC RBC Hgb Hct MCV MCH MCHC RDW Plt Count MPV Neut % (Auto) Lymph % (Auto) [place] % (Auto) Eos % (Auto) Baso % (Auto) Neut # (Auto) Lymph # (Auto) [place] # (Auto) Eos # (Auto) Baso # (Auto) Neutrophils % (Manual) Lymphocytes % (Manual) Monocytes % (Manual) Platelet Estimate PT INR APTT Sodium Potassium Chloride Carbon Dioxide Anion Gap BUN Creatinine Est GFR ( Amer) Est GFR (Non-Af Amer) Random Glucose Calcium Total Bilirubin AST ALT Alkaline Phosphatase Total Creatine Kinase 81 CK-MB (Mass) 0.63 Troponin I < 0.0120 NT-Pro-B Natriuret Pep Total Protein Albumin Globulin Albumin/Globulin Ratio Assessment & Plan - Assessment and Plan (Free Text) Assessment: Patient is a 73-year-old male High blood pressure High cholesterol CAD Status post stenting Obstructive sleep apnea Chronic gout Recurrent gastritis and esophagitis. Patient recently had an gouty attack. Now admitted with acute chest pain associate with the systemic symptoms. Nonspecific. Recommended telemetry monitoring Cardiology evaluation We will monitor the cardiac enzymes. Glucose monitoring DVT and GI prophylaxis Patient stress test 08/2018 Normal Due to ongoing chest pain will perform cath on Saturday for definitive diagnosis
[2019-01-04] MEDS: Pantoprazole 40 mg EC Tab PO SCH (10:35)
[2019-01-04] MEDS: Metoprolol Succinate 25 mg XL Tab PO SCH (10:36)
--- NOTE | 2019-01-04 15:03 | CP.PCM.HP ---
History of Present Illness - History of Present Illness History of Present Illness: Chief complaint: Chest pain HPI: 73-year-old male with a history of hypertension, high cholesterol, CAD, status post a stent, obstructive sleep apnea and gastroesophageal reflux disease, history of gout came to the emergency room with gradually worsening pain. Patient over the course of 2 weeks not feeling well. But when he visited his daughter's house on the day of admission he suddenly felt dizzy, chest discomfort, chest tightness, sweating. Family was very concerned, called 911 and came to the emergency room. Because of his history of heart disease family very concerned, and also stent in the past and ongoing chest discomfort decided to get admitted to the hospital Past medical history: Hypertension high cholesterol CAD status post a stent to gout and obstructive sleep apnea Allergic to indomethacin Personal history: Non-smoker nonalcoholic lives with the family Surgical history includes none Family history noncontributory Review of system: Complaining of ongoing chest discomfort chest tightness Complaining of sweating, dizziness. Denies any nausea vomiting. But epigastric pain also presented. Recently patient had a gouty attack, took prednisone. HEENT PERRLA, neck supple Chest bilateral good air entry, no wheezing or rales noted Heart sounds are regular, no murmur noted Abdomen soft, nontender SCIENTIFIC ASSOCIATE alert awake oriented x3 no functional neurological deficit No pedal edema noted Patient labs reviewed Nonspecific. Cardiac enzymes are negative EKG nonspecific Chest x-ray showing no evidence of any abnormality Assessment and recommendation: Patient is a 73-year-old male High blood pressure High cholesterol CAD Status post stenting Obstructive sleep apnea Chronic gout Recurrent gastritis and esophagitis. Patient recently had an gouty attack. Now admitted with acute chest pain associate with the systemic symptoms. Nonspecific. Recommended telemetry monitoring Cardiology evaluation We will monitor the cardiac enzymes. Glucose monitoring DVT and GI prophylaxis Patient might need stress test or cardiac work-up to rule out any ongoing obstructive heart disease. Possible unstable angina cannot be ruled out Present on Admission - Present on Admission Any Indicators Present on Admission: No History of DVT/PE: No History of Uncontrolled Diabetes: No Urinary Catheter: No Decubitus Ulcer Present: No Past Patient History - Infectious Disease Hx of Infectious Diseases: None - Tetanus Immunizations Tetanus Immunization: Unknown - Past Medical History & Family History Past Medical History?: Yes - Past Social History Smoking Status: Never Smoked - CARDIAC Hx Hypercholesterolemia: Yes Hx Hypertension: Yes - PULMONARY Hx Respiratory Disorders: No - NEUROLOGICAL Hx Neurological Disorder: No - HEENT Hx HEENT Problems: No - RENAL Hx Chronic Kidney Disease: No - ENDOCRINE/METABOLIC Hx Endocrine Disorders: No - HEMATOLOGICAL/ONCOLOGICAL Hx Blood Disorders: No - INTEGUMENTARY Hx Dermatological Problems: No - MUSCULOSKELETAL/RHEUMATOLOGICAL Hx Musculoskeletal Disorders: Yes Hx Falls: No Hx Gout: Yes - GASTROINTESTINAL Hx Gastrointestinal Disorders: Yes Hx Ulcer: Yes - GENITOURINARY/GYNECOLOGICAL Hx Genitourinary Disorders: No - PSYCHIATRIC Hx Substance Use: No - SURGICAL HISTORY Hx Coronary Stent: Yes (3-4 YRS AGO) - ANESTHESIA Hx Anesthesia: Yes Hx Anesthesia Reactions: No Hx Malignant Hyperthermia: No Meds Allergies/Adverse Reactions: Allergies Allergy/AdvReac Type Severity Reaction Status Date / Time No Known Allergies Allergy Verified 01/03/19 15:59 Results - Vital Signs Recent Vital Signs: Last Vital Signs Temp 97.9 F 01/04/19 07:00 Pulse 56 L 01/04/19 08:02 Resp 20 01/04/19 07:00 BP 122/73 01/04/19 07:00 Pulse Ox 96 01/04/19 07:00 - Labs Result Diagrams: 01/03/19 16:34 01/03/19 16:34 Labs: Laboratory Results - last 24 hr 01/03/19 01/03/19 01/03/19 16:34 16:34 16:53 WBC 3.6 L RBC 4.43 Hgb 13.7 Hct 40.1 MCV 90.5 MCH 31.0 MCHC 34.2 RDW 13.9 Plt Count 140 MPV 8.6 Neut % (Auto) 34.0 L Lymph % (Auto) 28.1 [place] % (Auto) 34.9 H Eos % (Auto) 1.9 Baso % (Auto) 1.1 Neut # (Auto) 1.2 L Lymph # (Auto) 1.0 [place] # (Auto) 1.3 H Eos # (Auto) 0.1 Baso # (Auto) 0.0 Neutrophils % (Manual) 62 Lymphocytes % (Manual) 22 Monocytes % (Manual) 16 H Platelet Estimate Normal PT 12.1 INR 1.1 APTT 29.8 Sodium 135 Potassium 5.1 Chloride 98 Carbon Dioxide 22 Anion Gap 20 BUN 28 H Creatinine 1.5 Est GFR ( Amer) 56 Est GFR (Non-Af Amer) 46 Random Glucose 128 H Calcium 8.9 Total Bilirubin 1.6 H AST 49 ALT 45 Alkaline Phosphatase 47 Total Creatine Kinase CK-MB (Mass) Troponin I < 0.0120 NT-Pro-B Natriuret Pep 132 Total Protein 7.4 Albumin 4.2 Globulin 3.2 Albumin/Globulin Ratio 1.3 01/03/19 21:30 WBC RBC Hgb Hct MCV MCH MCHC RDW Plt Count MPV Neut % (Auto) Lymph % (Auto) [place] % (Auto) Eos % (Auto) Baso % (Auto) Neut # (Auto) Lymph # (Auto) [place] # (Auto) Eos # (Auto) Baso # (Auto) Neutrophils % (Manual) Lymphocytes % (Manual) Monocytes % (Manual) Platelet Estimate PT INR APTT Sodium Potassium Chloride Carbon Dioxide Anion Gap BUN Creatinine Est GFR ( Amer) Est GFR (Non-Af Amer) Random Glucose Calcium Total Bilirubin AST ALT Alkaline Phosphatase Total Creatine Kinase 81 CK-MB (Mass) 0.63 Troponin I < 0.0120 NT-Pro-B Natriuret Pep Total Protein Albumin Globulin Albumin/Globulin Ratio
--- NOTE | 2019-01-04 16:58 | CP.PCM.PN ---
Subjective - Date & Time of Evaluation Date of Evaluation: 01/04/19 Time of Evaluation: 16:56 - Subjective Subjective: 73 M with hx of CAD s/p Multi vessel PCI admitted for chest pain Continue anti ischemic therapy Cath tomorrow at 3pm NPO after breakfast Review Of Systems Except As Marked, All Systems Reviewed And Found Negative. Constitutional: Positive for: Sweats. Negative for: Fever, Chills Cardiovascular: Positive for: Chest Pain. Negative for: Palpitations Respiratory: Positive for: Shortness of Breath. Negative for: Cough Gastrointestinal: Positive for: Nausea. Negative for: Vomiting, Abdominal Pain, Diarrhea Musculoskeletal: Negative for: Neck Pain Neurological: Positive for: Headache, Dizziness Physical Exam - Physical Exam Appears: Non-toxic, No Acute Distress Skin: Warm, Dry Head: Atraumatic, Normacephalic Eye(s): bilateral: Normal Inspection Oral Mucosa: Moist Neck: Supple Cardiovascular: Rhythm Irregular, No Murmur Respiratory: Normal Breath Sounds, No Rales, No Rhonchi, No Wheezing Gastrointestinal/Abdominal: Soft, No Tenderness, Other (obese) Extremity: Other (no pitting edema) Extremity: Bilateral: Atraumatic, Normal Color And Temperature Neurological/Psych: Oriented x3, Normal Speech Assessment & Plan - Assessment and Plan (Free Text) Assessment: Patient is a 73-year-old male High blood pressure High cholesterol CAD Status post stenting Obstructive sleep apnea Chronic gout Recurrent gastritis and esophagitis. Patient recently had an gouty attack. Now admitted with acute chest pain associate with the systemic symptoms. Nonspecific. Recommended telemetry monitoring Cardiology evaluation We will monitor the cardiac enzymes. Glucose monitoring DVT and GI prophylaxis Patient stress test 08/2018 Normal Due to ongoing chest pain will perform cath on Saturday for definitive diagnosis Objective - Vital Signs/Intake and Output Vital Signs (last 24 hours): Temp Pulse Resp BP Pulse Ox 97.9 F 56 L 20 122/73 96 01/04/19 07:00 01/04/19 08:02 01/04/19 07:00 01/04/19 07:00 01/04/19 07:00 - Medications Medications: Current Medications Aspirin (Ecotrin) 81 mg PO DAILY [facility] Last Admin: 01/04/19 10:35 Dose: 81 mg Heparin Sodium (Porcine) (Heparin) 5,000 units SC Q8 [facility] Last Admin: 01/04/19 13:58 Dose: 5,000 units Losartan Potassium (Cozaar) 25 mg PO DAILY [facility] Last Admin: 01/04/19 10:35 Dose: 25 mg Metoprolol Succinate (Toprol Xl) 25 mg PO DAILY [facility] Last Admin: 01/04/19 10:36 Dose: Not Given Pantoprazole Sodium (Protonix Ec Tab) 40 mg PO DAILY [facility] Last Admin: 01/04/19 10:35 Dose: 40 mg - Labs Labs: 01/03/19 16:34 01/03/19 16:34 PT 12.1 SECONDS (9.7-12.2) 01/03/19 16:53 INR 1.1 01/03/19 16:53 APTT 29.8 SECONDS (21-34) 01/03/19 16:53
[2019-01-05 06:35] LABS: BASO # 0.1 K/uL (0.0-0.2); BASO % 1.3 % (0.0-2.0); EOS # 0.1 K/uL (0.0-0.7); EOS % 2.2 % (0.0-4.0); HEMOGLOBIN 14.2 g/dL (12.0-18.0); LYMPH # 1.6 K/uL (1.0-4.3); LYMPH % 38.8 % (20.0-40.0); MEAN CELL VOLUME 90.8 fL (80.0-94.0); MEAN CORPUSCULAR HEMOGLOBIN 30.8 pg (27.0-31.0); MEAN CORPUSCULAR HGB CONC 33.9 g/dL (33.0-37.0); MEAN PLATELET VOLUME 8.9 fL (7.2-11.7); MONO # 1.1 K/uL (0.0-0.8); MONO % 26.8 % (0.0-10.0); NEUT # 1.2 K/uL (1.8-7.0); NEUT % 30.9 % (50.0-75.0); NRBC % 0.1 % (0.0-2.0); PLATELET COUNT 139 K/uL (130-400); RBC 4.61 Mil/uL (4.40-5.90); RED CELL DISTRIBUTION WIDTH 13.8 % (11.5-14.5)
[2019-01-05 07:03] LABS: ALB/GLOB RATIO 1.4 (1.0-2.1); ALBUMIN 4.1 g/dL (3.5-5.0); ALT/SGPT 47 U/L (21-72); AST/SGOT 39 U/L (17-59); BLOOD UREA NITROGEN 23 mg/dL (9-20); CALCIUM 8.5 mg/dl (8.6-10.4); CK-MB 0.26 ng/mL (0.0-3.38); GFR NON-AFRICAN AMERICAN 59
[2019-01-05 09:30] LABS: BANDS 2 % (0-2); BASOPHIL 1 % (0-2); EOSINOPHIL 1 % (0-4); LYMPHOCYTE 37 % (20-40); MONOCYTE 28 % (0-10); NEUTROPHIL 30 % (50-75); PLATELET ESTIMATE NORMAL (NORMAL); REACTIVE LYMPHOCYTES 1 % (0-0); TOTAL CELLS COUNTED 100
[2019-01-05 09:31] LABS: OVALOCYTES SLIGHT
[2019-01-05] MEDS: Metoprolol Succinate 25 mg XL Tab PO SCH (10:35)
[2019-01-05] MEDS: Pantoprazole 40 mg EC Tab PO SCH (10:35)
--- NOTE | 2019-01-05 13:36 | CARD ---
APPROVED REPORT Date of service: 01/03/2019 EKG Measurement Heart [id number] <Conclusion> Sinus rhythm with premature supraventricular complexes Inferior infarct, age undetermined Abnormal ECG
[2019-01-05] MEDS ORDERED: Lidocaine 2% MPF (5 ml) Inj ONE (15:54)
[2019-01-05] MEDS ORDERED: Iodixanol 320 MG/ML 100 ML BOTTLE IV ONE (15:54)
[2019-01-05] MEDS ORDERED: Midazolam 2 MG/2 ML VIAL ONE (16:01)
--- NOTE | 2019-01-05 16:47 | CP.PCM.PN ---
Subjective - Date & Time of Evaluation Date of Evaluation: 01/05/19 Time of Evaluation: 16:41 - Subjective Subjective: Patient s/p Cath L Main: Patent LAD: Prior stent patent. LAD is of small caliber distally L Cx: Prior stent patent. Prox 50% narrowing. L Cx is of small caliber distally RCA: Dominant and patent. Proximally 30% narrowing EF: 60%, EDP 13, No AV gradient Plan: Medical management Add Imdur to the regimen Objective - Vital Signs/Intake and Output Vital Signs (last 24 hours): Temp Pulse Resp BP Pulse Ox 98.5 F 52 L 20 120/67 96 01/05/19 08:02 01/05/19 12:22 01/05/19 08:02 01/05/19 10:36 01/05/19 08:02 - Medications Medications: Current Medications Aspirin (Ecotrin) 81 mg PO DAILY [facility] Last Admin: 01/05/19 10:35 Dose: 81 mg Sodium Chloride (Sodium Chloride 0.9%) 1,000 mls @ 70 mls/hr IV .[id number] [facility] Isosorbide Mononitrate (Imdur) 60 mg PO DAILY [facility] Losartan Potassium (Cozaar) 25 mg PO DAILY [facility] Last Admin: 01/05/19 10:35 Dose: 25 mg Metoprolol Succinate (Toprol Xl) 25 mg PO DAILY [facility] Last Admin: 01/05/19 10:35 Dose: 25 mg Pantoprazole Sodium (Protonix Ec Tab) 40 mg PO DAILY [facility] Last Admin: 01/05/19 10:35 Dose: 40 mg - Labs Labs: 01/05/19 06:25 01/05/19 06:25 PT 12.1 SECONDS (9.7-12.2) 01/03/19 16:53 INR 1.1 01/03/19 16:53 APTT 29.8 SECONDS (21-34) 01/03/19 16:53
[2019-01-05] MEDS ORDERED: Nitroglycerin 50mg in D5W 50 MG/250 ML BOTTLE IV ONE (16:55)
[2019-01-05] MEDS: Sodium Chloride 0.9% 1,000 ML IV SCH (17:45)
--- NOTE | 2019-01-05 17:47 | CARD ---
APPROVED REPORT Date of service: 01/05/2019 EXAM: Two-dimensional and M-mode echocardiogram with Doppler and color Doppler. Other Information Quality : GoodRhythm : INDICATION Dizziness and Vertigo Cardiac Disease: CAD Chest Pain UNSTABLE ANGINA Surgery/Intervention Status/Post Intervention: Stent RISK FACTORS Hypertension Hyperlipidemia 2D DIMENSIONS LA Flkxjq11 (18-58mL)LVEF (Prater's)66.66 % IVC0.00 cm M-Mode DIMENSIONS RVDd1.83 (2.1-3.2cm)Left Atrium (MM)3.34 (2.5-4.0cm) IVSd1.07 (0.7-1.1cm)Aortic Root3.39 (2.2-3.7cm) LVDd5.07 (4.0-5.6cm)Aortic Cusp Exc.2.10 (1.5-2.0cm) PWd1.33 (0.7-1.1cm)FS (%) 37 % LVDs3.20 (2.0-3.8cm)LVEF (%)66 (>50%) Aortic Valve AI P 1/2 Oiln155xg Mitral Valve MV E Evzhyiqk31.1cm/sMV A Rfkeiniq95.7cm/sE/A ratio1.1 FGHC823.76 cm/s TDI Lateral E' Peak V6.61cm/sMedial E' Peak V8.03cm/sE/Lateral E'14.5 E/Medial E'12.0 Tricuspid Valve TR Peak Bqzyvmfu308tk/sTR Peak Gr.91svQwWPVL46acSm LEFT VENTRICLE The left ventricle is normal size. There is normal left ventricular wall thickness. The left ventricular function is normal. The left ventricular ejection fraction is within the normal range. There is normal LV segmental wall motion. The left ventricular diastolic function is normal. RIGHT VENTRICLE The right ventricle is normal size. ATRIA The left atrium size is normal. AORTIC VALVE There is mild aortic regurgitation. MITRAL VALVE Mitral regurgitation is mild. TRICUSPID VALVE There is mild to moderate tricuspid regurgitation. <Conclusion> Normal LV systolic function. Normal chamber size. Mild MR. Mild AR. Mild to moderate TR.
[2019-01-06] MEDS: Metoprolol Succinate 25 mg XL Tab PO SCH (09:00)
[2019-01-06] MEDS: Pantoprazole 40 mg EC Tab PO SCH (09:00)
[2019-01-06] MEDS: Sodium Chloride 0.9% 1,000 ML IV SCH (09:01)
[2019-01-06] MEDS ORDERED: Enoxaparin 40 mg Syringe SC SCH (10:00)
[2019-01-06 16:09] VITALS: BP 109/65; PULSE 61; TEMP 97.8; O2SAT 96
--- NOTE | 2019-01-06 20:55 | CP.PCM.DIS ---
Provider - Provider Date of Admission: 01/05/19 16:13 Attending physician: Coral Jackson MD Consults: 01/03/19 17:04 Cardiology Consult Stat Comment: spoke with Dr. Zuniga Consulting Provider: Israel Zuniga Consulting Physician: Israel Zuniga Reason for Consult: chest pain , ACS 01/05/19 18:15 Inpatient [facility] [employer] Me[employer] Referral Routine Comment: Physician Instructions: Reason For Exam: chest pain Time Spent in preparation of Discharge (in minutes): 45 Hospital Course - Lab Results Lab Results: Most Recent Lab Values WBC 4.0 K/uL (4.8-10.8) L 01/05/19 06:25 RBC 4.61 Mil/uL (4.40-5.90) 01/05/19 06:25 Hgb 14.2 g/dL (12.0-18.0) 01/05/19 06:25 Hct 41.9 % (35.0-51.0) 01/05/19 06:25 MCV 90.8 fL (80.0-94.0) 01/05/19 06:25 MCH 30.8 pg (27.0-31.0) 01/05/19 06:25 MCHC 33.9 g/dL (33.0-37.0) 01/05/19 06:25 RDW 13.8 % (11.5-14.5) 01/05/19 06:25 Plt Count 139 K/uL (130-400) 01/05/19 06:25 MPV 8.9 fL (7.2-11.7) 01/05/19 06:25 Neut % (Auto) 30.9 % (50.0-75.0) L 01/05/19 06:25 Lymph % (Auto) 38.8 % (20.0-40.0) 01/05/19 06:25 [place] % (Auto) 26.8 % (0.0-10.0) H 01/05/19 06:25 Eos % (Auto) 2.2 % (0.0-4.0) 01/05/19 06:25 Baso % (Auto) 1.3 % (0.0-2.0) 01/05/19 06:25 Neut # (Auto) 1.2 K/uL (1.8-7.0) L 01/05/19 06:25 Lymph # (Auto) 1.6 K/uL (1.0-4.3) 01/05/19 06:25 [place] # (Auto) 1.1 K/uL (0.0-0.8) H 01/05/19 06:25 Eos # (Auto) 0.1 K/uL (0.0-0.7) 01/05/19 06:25 Baso # (Auto) 0.1 K/uL (0.0-0.2) 01/05/19 06:25 Neutrophils % (Manual) 30 % (50-75) L 01/05/19 06:25 Band Neutrophils % 2 % (0-2) 01/05/19 06:25 Lymphocytes % (Manual) 37 % (20-40) 01/05/19 06:25 Reactive Lymphs % 1 % (0-0) H 01/05/19 06:25 Monocytes % (Manual) 28 % (0-10) H 01/05/19 06:25 Eosinophils % (Manual) 1 % (0-4) 01/05/19 06:25 Basophils % (Manual) 1 % (0-2) 01/05/19 06:25 Platelet Estimate Normal (NORMAL) 01/05/19 06:25 Ovalocytes Slight 01/05/19 06:25 PT 12.1 SECONDS (9.7-12.2) 01/03/19 16:53 INR 1.1 01/03/19 16:53 APTT 29.8 SECONDS (21-34) 01/03/19 16:53 Sodium 138 mmol/L (132-148) 01/05/19 06:25 Potassium 4.0 mmol/L (3.6-5.2) 01/05/19 06:25 Chloride 105 mmol/L (98-107) 01/05/19 06:25 Carbon Dioxide 24 mmol/L (22-30) 01/05/19 06:25 Anion Gap 14 (10-20) 01/05/19 06:25 BUN 23 mg/dL (9-20) H 01/05/19 06:25 Creatinine 1.2 mg/dL (0.8-1.5) 01/05/19 06:25 Est GFR ( Amer) > 60 01/05/19 06:25 Est GFR (Non-Af Amer) 59 01/05/19 06:25 Random Glucose 100 mg/dL (75-110) D 01/05/19 06:25 Calcium 8.5 mg/dl (8.6-10.4) L 01/05/19 06:25 Phosphorus 3.0 mg/dL (2.5-4.5) 01/05/19 06:25 Magnesium 2.0 mg/dL (1.6-2.3) 01/05/19 06:25 Total Bilirubin 1.0 mg/dL (0.2-1.3) 01/05/19 06:25 AST 39 U/L (17-59) 01/05/19 06:25 ALT 47 U/L (21-72) 01/05/19 06:25 Alkaline Phosphatase 60 U/L (38-126) 01/05/19 06:25 Total Creatine Kinase 226 U/L (55-170) H 01/05/19 06:25 CK-MB (Mass) 0.26 ng/mL (0.0-3.38) 01/05/19 06:25 Troponin I < 0.0120 ng/mL (0.00-0.120) 01/05/19 06:25 NT-Pro-B Natriuret Pep 132 pg/mL (0-900) 01/03/19 16:34 Total Protein 7.1 g/dL (6.3-8.3) 01/05/19 06:25 Albumin 4.1 g/dL (3.5-5.0) 01/05/19 06:25 Globulin 3.0 gm/dL (2.2-3.9) 01/05/19 06:25 Albumin/Globulin Ratio 1.4 (1.0-2.1) 01/05/19 06:25 - Hospital Course Hospital Course: Chief complaint: Chest pain HPI: 73-year-old male with a history of hypertension, high cholesterol, CAD, status post a stent, obstructive sleep apnea and gastroesophageal reflux disease, history of gout came to the emergency room with gradually worsening pain. Patient over the course of 2 weeks not feeling well. But when he visited his daughter's house on the day of admission he suddenly felt dizzy, chest discomfort, chest tightness, sweating. Family was very concerned, called 911 and came to the emergency room. Because of his history of heart disease family very concerned, and also stent in the past and ongoing chest discomfort decided to get admitted to the hospital Past medical history: Hypertension high cholesterol CAD status post a stent to gout and obstructive sleep apnea Allergic to indomethacin Personal history: Non-smoker nonalcoholic lives with the family Surgical history includes none Family history noncontributory Review of system: Complaining of ongoing chest discomfort chest tightness Complaining of sweating, dizziness. Denies any nausea vomiting. But epigastric pain also presented. Recently patient had a gouty attack, took prednisone. 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 Cardiac enzymes are negative EKG nonspecific Chest x-ray showing no evidence of any abnormality Assessment and recommendation: Patient is a 73-year-old male High blood pressure High cholesterol CAD Status post stenting Obstructive sleep apnea Chronic gout Recurrent gastritis and esophagitis. Patient recently had an gouty attack. Now admitted with acute chest pain associate with the systemic symptoms. Nonspecific. Recommended telemetry monitoring Cardiology evaluation We will monitor the cardiac enzymes. Glucose monitoring DVT and GI prophylaxis Patient might need stress test or cardiac work-up to rule out any ongoing obstructive heart disease. Possible unstable angina cannot be ruled out Patient s/p Cath L Main: Patent LAD: Prior stent patent. LAD is of small caliber distally L Cx: Prior stent patent. Prox 50% narrowing. L Cx is of small caliber distally RCA: Dominant and patent. Proximally 30% narrowing EF: 60%, EDP 13, No AV gradient Plan: Medical management Add Imdur to the regimen Patient was seen by grappler earlier today. Medically patient was cleared of all the discharge. Patient actually signed AGAINST MEDICAL ADVICE before I come to see him. I will follow the patient and I will call the patient to come to my office. We will continue the current treatment. Will add taking your 30 mg daily and will follow the patient The rest of the medications will be continued. Final diagnosis: Coronary artery disease Recurrent angina Hypertension Gastritis Discharge Plan - Follow Up Plan Condition: GUARDED Disposition: AGAINST MEDICAL ADVICE Instructions: Heart Healthy Diet, Cardiac Catheterization (DC), Angina (DC), Chest Pain (DC) Referrals: Israel Zuniga MD [Staff Provider] - Coral Jackson MD [Staff Provider] -
--- NOTE | 2019-01-06 20:55 | CP.PCM.PN ---
Subjective - Date & Time of Evaluation Date of Evaluation: 01/04/19 Time of Evaluation: 20:55 - Subjective Subjective: Patient now feeling well. No pain at this time. He will be getting the possibly angiogram or stress test tomorrow. We will plan for discharge after that Objective - Vital Signs/Intake and Output Vital Signs (last 24 hours): Temp Pulse Resp BP Pulse Ox 97.8 F 61 20 109/65 96 01/06/19 15:10 01/06/19 15:10 01/06/19 15:10 01/06/19 15:10 01/06/19 15:10 Intake and Output: 01/06/19 01/07/19 18:59 06:59 Intake Total 1160 Balance 1160 - Labs Labs: 01/05/19 06:25 01/05/19 06:25 PT 12.1 SECONDS (9.7-12.2) 01/03/19 16:53 INR 1.1 01/03/19 16:53 APTT 29.8 SECONDS (21-34) 01/03/19 16:53
--- NOTE | 2019-01-06 20:56 | CP.PCM.PN ---
Subjective - Date & Time of Evaluation Date of Evaluation: 01/05/19 Time of Evaluation: 20:55 - Subjective Subjective: I spoke to the field clinical engineer. Patient had angiogram today. Clinically patient is stable. Nonobstructive coronary disease. We will continue the current treatment. We will follow the patient Objective - Vital Signs/Intake and Output Vital Signs (last 24 hours): Temp Pulse Resp BP Pulse Ox 97.8 F 61 20 109/65 96 01/06/19 15:10 01/06/19 15:10 01/06/19 15:10 01/06/19 15:10 01/06/19 15:10 Intake and Output: 01/06/19 01/07/19 18:59 06:59 Intake Total 1160 Balance 1160 - Labs Labs: 01/05/19 06:25 01/05/19 06:25 PT 12.1 SECONDS (9.7-12.2) 01/03/19 16:53 INR 1.1 01/03/19 16:53 APTT 29.8 SECONDS (21-34) 01/03/19 16:53
--- NOTE | 2019-01-14 02:04 | CARDCATH ---
PROCEDURE DATE: 01/05/2019 PROCEDURES: 1. Left heart catheterization. 2. Coronary angiogram. CLINICAL INDICATIONS: 1. Chest pain. 2. Hypertension. 3. Hyperlipidemia. 4. History of coronary artery disease and stent placement. PERFORMING PHYSICIAN: Israel Zuniga MD REFERRING PHYSICIAN: Coral Jackson MD DESCRIPTION OF PROCEDURE: After informed consent, the patient was prepped and draped in the usual sterile fashion. Lidocaine 2% was given in the right groin for local anesthesia. Using micropuncture technique, a 6-Syriac sheath was introduced into the right common femoral artery. A JL4 6-Syriac diagnostic catheter was engaged into left main coronary artery. Contrast was injected and left coronary angiogram was done. Then, the catheter was exchanged to JR4 6-Syriac diagnostic catheter. The catheter was inserted into left ventricle across the aortic valve. LVEDP was measured. Contrast was injected and left ventricular angiogram was done. Then, the catheter was pulled back across the aortic valve. Gradient across the aortic valve was measured. Then, the same catheter engaged into right coronary artery. Contrast was injected and right coronary angiogram was done. The patient tolerated the procedure well. Postprocedure, Mynx closure device was deployed in the right groin with excellent hemostasis. Radiological supervision and radiological interpretation of the coronary imaging was done. FINDINGS: 1. Left main coronary artery is patent. 2. Prior stent in the LAD is patent; however, the patient has a diffuse distal LAD disease. 3. Prior stent in the left circumflex is patent. Diffuse distal left circumflex and obtuse marginal disease. 4. Right coronary artery is dominant. Proximal right coronary artery has 30% to 40% stenosis. Distal RCA and PDA have diffuse disease. 5. LV ejection fraction approximately 60%. No wall motion abnormalities noted. EDP is 18. No gradient across the aortic valve. IMPRESSION: 1. Prior stents in the left anterior descending and circumflex are patent. Otherwise, the patient has a diffuse distal left anterior descending, left circumflex, and right coronary artery disease. 2. Normal left ventricular systolic function. 3. Recommend aggressive medical management. Israel Zuniga MD
== END 2019-01-06 20:26 | disposition left against medical advice (07) | DRG 287 ==
LOC: C.ER 15:48 → C.9E 17:03 → C.6T 17:34 → OBSVTOIN 01-05 16:13
PROVIDERS: ADMIT Internal Medicine; ATTEND Internal Medicine
PROC: 4A023N7 Measurement of Cardiac Sampling and Pressure, Left Heart, Percutaneous Approach (ICD-10-PCS; principal; 2019-01-05)
PROC: B2111ZZ Fluoroscopy of Multiple Coronary Arteries using Low Osmolar Contrast (ICD-10-PCS; 2019-01-05)
DX: I25.110 Atherosclerotic heart disease of native coronary artery with unstable angina pectoris (principal); E78.5 Hyperlipidemia, unspecified; G47.33 Obstructive sleep apnea (adult) (pediatric); I10 Essential (primary) hypertension; E11.9 Type 2 diabetes mellitus without complications; K29.70 Gastritis, unspecified, without bleeding; Z95.5 Presence of coronary angioplasty implant and graft; M1A.9XX0 Chronic gout, unspecified, without tophus (tophi); K21.0 Gastro-esophageal reflux disease with esophagitis